=== PATIENT | female | born 1960 | race Caucasian/White ===

== ENCOUNTER 2016-08-19 06:56 | Emergency (ER) | payer OTHER ==
--- NOTE | 2016-08-19 13:00 | ED ORDER SUMMARY ---
..... Patient: KOLE BLACK OrderSheet [facility] VisitID: [id number] [address] [place] [address] 55y, F Registration Date/Time: 08/19/2016 ORDER SHEET Weight: 63.5 kg (stated) Allergies: Penicillins, Sulfa Antibiotics GENERAL ORDERS: - (Crackers with ibuprofen) (09:15 08/19/2016 Leo RUEDA) (9:28 Iza R.N.) Rapid Influenza Screen (Nasal Pharyngeal) (swab) Urgent (09:16 08/19/2016 Leo RUEDA) (Ack 9:19 OHernandez) (9:28 Iza R.N.) MEDICATION ORDERS: Ibuprofen PO 600 mg (NOW) (09:15 08/19/2016 Leo RUEDA) (Ack 9:28 Iza R.N.) (9:49 Iza R.N.) Zofran ODT PO 4 mg (NOW) (09:15 08/19/2016 Leo RUEDA) (Ack 9:28 Iza R.N.) (9:50 Iza R.N.) IV FLUIDS: ORDER SHEET NOTES: [Electronically signed by Avis Jaffe R.N. (19:16 08/19/2016)] [Electronically signed by Tavares Boles MD (12:46 08/21/2016)] [Electronically locked/signed by Avis Jaffe R.N. (19:16 08/19/2016)]
--- NOTE | 2016-08-19 13:00 | ED NURSING NOTES ---
Clinical Report - Nurses [facility] [address] [place] [address] 08/19/2016 6:58 Patient: KOLE BLACK TRIAGE Triage time 07:14. Acuity: LEVEL 4. Chief Complaint: COUGH and VOMITING. Alert. No acute distress. JUANCARLOS COMA SCORE: [place] Coma Scale: 15- eyes open spontaneously (4); best verbal response- oriented x 4 (5); best motor response- obeys commands (6). --07:19 Aysha Buckley R.N. 07:13 08/19/16. BP: 145/74. HR: 19. RR: 18. O2 saturation: 98% on room air. Temp: 98.6 F (oral). Pain level now: 510. --07:19 Aysha Buckley R.N. Weight: 63.5 kg stated. Height/Length: 61 inches Per Patient. BMI: 26.5. --07:16 Aysha Buckley R.N. Medications Acetaminophen Oral, as needed. --07:15 Aysha Buckley R.N. Allergies Penicillins. Sulfa Antibiotics. --07:15 Aysha Buckley R.N. History Arrived by private vehicle. Historian: patient. Accompanied by family. Primary physician (none). Onset. (). She has had a cough. PAST MEDICAL HX: The patient is post-menopausal. SOCIAL HX: Smoker- current status unknown (no). No alcohol use or drug use. FALL RISK ASSESSMENT: Fall risk assessment completed. No fall risk identified. FUNCTIONAL ASSESSMENT: Functional assessment: no impairments noted. LEARNING NEEDS ASSESSMENT: The learning needs assessment revealed no barriers. --07:19 Aysha Buckley R.N. PROBLEMS: no known problems. ADDITIONAL SURGERIES: no known surgeries. Assessment GENERAL / NEURO / PSYCH: Alert. Oriented X 4. Appears in no acute distress. Patient appears calm and cooperative. RESPIRATORY: Respirations not labored. SKIN: Skin is warm and dry. --07:19 Aysha Buckley R.N. Interventions ID band on patient. To treatment room. --07:19 Aysha Buckley R.N. PHYSICAL ASSESSMENT 07:24 08/19/16. Ambulatory to room. GENERAL / NEURO / PSYCH: The patient is awake and alert, is oriented and cooperative and appears uncomfortable. She has good eye contact. RESPIRATORY: Respirations not labored. Cough. SKIN: Skin is warm and dry. --07:24 Aysha Buckley R.N. NURSING PROGRESS NOTES 07:25 08/19/16. Head of bed elevated. Call light placed in reach. Side rails up x 1. Bed placed in lowest position. Brakes of bed on. --07:25 Aysha Buckley R.N. 09:49 08/19/2016 Ibuprofen PO Tablets 600 mg given. Allergies verified and confirmed 5 rights. --09:49 Aysha Buckley R.N. 09:50 08/19/2016 Zofran ODT (Ondansetron) PO Oral Disintegrating Tablets 4 mg given. Allergies verified and confirmed 5 rights. --09:50 Aysha Buckley R.N. 09:50 08/19/16. Patient ID band checked: patient confirmed. Flu swab obtained by RN via nasal pharyngeal swab. Labeled in the presence of the patient and sent to lab. --09:50 Aysha Buckley R.N. DISPOSITION / DISCHARGE Departure time: 13:09 Aug 19 2016. No learning barriers present. Discharge instructions provided and reviewed with the patient and spouse. Reviewed warnings. Reviewed medication(s). Treatments reviewed. Reviewed referrals. Patient verbalized understanding. Written instructions provided in Greenlandic. The patient was discharged home and accompanied by spouse. She left the Emergency Department ambulatory and via private vehicle. Spouse driving. --13:09 Avis Jaffe R.N. 13:08 08/19/16. BP: 118/61. HR: 80. RR: 18. O2 saturation: 96%. Temp: 98.1 F. Pain level now 10. --13:09 Avis Jaffe R.N. Locked/Released at 08/19/2016 19:16 by Avis Jaffe R.N.
--- NOTE | 2016-08-19 13:00 | ED CLINICAL REPORT ---
Clinical Report - Physicians/Mid Levels [facility] [address] [place] [address] 08/19/2016 6:58 Patient: KOLE BLACK Time Seen: 09:08. HISTORY OF PRESENT ILLNESS Chief Complaint: COUGH and FEVER. This started about 7 days ago, fever starting yesterday; Aches and cough with nausea and is still present and worsening. It was gradual in onset. The illness is described as moderate. The patient has had scant amounts of sputum, a cough and nasal congestion. She has had a subjective fever (yesterday). No sore throat or hoarseness. Additional history - The patient has had contact with a sick family member. Similar symptoms previously: None. REVIEW OF SYSTEMS The patient is post-menopausal. She has had nausea. No vomiting, abdominal pain, difficulty with urination or urination or joint pain. No skin rash. Sinus and ear pressure. PAST HISTORY PCP: No Local. Just moved Illness: Ops: None Hosp: Childbirth. SOCIAL HISTORY Never smoker. ADDITIONAL NOTES The nursing notes have been reviewed. PHYSICAL EXAM Vital Signs: 08/19/2016 13:08 BP: 118/61. HR: 80. RR: 18. O2 saturation: 96%. Temp: 98.1 F. 08/19/2016 07:13 BP: 145/74. HR: 19. RR: 18. O2 saturation: 98%. Temp: 98.6 F. Pain level now: 5/10. Appearance: Alert. No acute distress. Eyes: Eyes normal inspection. ENT: Ears normal. Pharynx normal. Uvula midline. No pharyngeal erythema or mouth ulcerations. Neck: Normal inspection. CVS: Normal heart rate and rhythm. Heart sounds normal. Respiratory: No respiratory distress. Breath sounds normal. Abdomen: Soft and nontender. Back: No CVA tenderness. Skin: No rash. Extremities: Extremities exhibit normal ROM. No lower extremity edema. LABS, X-RAYS, AND EKG Laboratory Tests: Rapid Influenza Screen: (SURESH: 08/19/2016 09:45) ( MsgRcvd 08/19/2016 10:03) Final results SPECIMEN DESCRIPTION: SWAB Test Result Flag Units (Reference) RAPID INFLUENZA SCREEN DATE: 08/19/16 INFLUENZA A: NEGATIVE SCREEN FOR INFLUENZA A INFLUENZA B: NEGATIVE SCREEN FOR INFLUENZA B . PROGRESS AND PROCEDURES Course of Care: Feels much better after ibuprofen. Non-influenza vrial syndrome. No bacterial infection. Disposition: Discharged. Condition: stable. CLINICAL IMPRESSION Viral syndrome INSTRUCTIONS (ANOTHER VIRUS NOT INFLUENZA, BUT IT ACTS THE SAME NASAL/SINUS AFRIN, SUDAFED). Prescription Medications: Zofran 4 mg: Take 1 orally every six hours as needed for nausea/vomiting. Dispense ten (10). No refills. Substitution is permissible. Albuterol HFA oral inhaler: inhale 1-2 puffs every 4 hours. Dispense one (1) unit. No refill. Follow-up: Follow up with your doctor in five days. Understanding of the discharge instructions verbalized by patient. (Electronically signed by Tavares Boles MD 08/21/2016 12:46)
--- NOTE | 2016-08-19 13:00 | ED ORDER SUMMARY ---
..... Patient: KOLE BLACK OrderSheet [facility] VisitID: [id number] [address] [place] [address] 55y, F Registration Date/Time: 08/19/2016 ORDER SHEET Weight: 63.5 kg (stated) Allergies: Penicillins, Sulfa Antibiotics GENERAL ORDERS: - (Crackers with ibuprofen) (09:15 08/19/2016 Leo RUEDA) (9:28 Iza R.N.) Rapid Influenza Screen (Nasal Pharyngeal) (swab) Urgent (09:16 08/19/2016 Leo RUEDA) (Ack 9:19 OHernandez) (9:28 Iza R.N.) MEDICATION ORDERS: Ibuprofen PO 600 mg (NOW) (09:15 08/19/2016 Leo RUEDA) (Ack 9:28 Iza R.N.) (9:49 Iza R.N.) Zofran ODT PO 4 mg (NOW) (09:15 08/19/2016 Leo RUEDA) (Ack 9:28 Iza R.N.) (9:50 Iza R.N.) IV FLUIDS: ORDER SHEET NOTES: [Electronically signed by Avis Jaffe R.N. (19:16 08/19/2016)] [Electronically signed by Tavares Boles MD (12:46 08/21/2016)] [Electronically locked/signed by Avis Jaffe R.N. (19:16 08/19/2016)]
--- NOTE | 2016-08-19 13:00 | ED NURSING NOTES ---
Clinical Report - Nurses [facility] [address] [place] [address] 08/19/2016 6:58 Patient: KOLE BLACK TRIAGE Triage time 07:14. Acuity: LEVEL 4. Chief Complaint: COUGH and VOMITING. Alert. No acute distress. JUANCARLOS COMA SCORE: [place] Coma Scale: 15- eyes open spontaneously (4); best verbal response- oriented x 4 (5); best motor response- obeys commands (6). --07:19 Aysha Buckley R.N. 07:13 08/19/16. BP: 145/74. HR: 19. RR: 18. O2 saturation: 98% on room air. Temp: 98.6 F (oral). Pain level now: 510. --07:19 Aysha Buckley R.N. Weight: 63.5 kg stated. Height/Length: 61 inches Per Patient. BMI: 26.5. --07:16 Aysha Buckley R.N. Medications Acetaminophen Oral, as needed. --07:15 Aysha Buckley R.N. Allergies Penicillins. Sulfa Antibiotics. --07:15 Aysha Buckley R.N. History Arrived by private vehicle. Historian: patient. Accompanied by family. Primary physician (none). Onset. (). She has had a cough. PAST MEDICAL HX: The patient is post-menopausal. SOCIAL HX: Smoker- current status unknown (no). No alcohol use or drug use. FALL RISK ASSESSMENT: Fall risk assessment completed. No fall risk identified. FUNCTIONAL ASSESSMENT: Functional assessment: no impairments noted. LEARNING NEEDS ASSESSMENT: The learning needs assessment revealed no barriers. --07:19 Aysha Buckley R.N. PROBLEMS: no known problems. ADDITIONAL SURGERIES: no known surgeries. Assessment GENERAL / NEURO / PSYCH: Alert. Oriented X 4. Appears in no acute distress. Patient appears calm and cooperative. RESPIRATORY: Respirations not labored. SKIN: Skin is warm and dry. --07:19 Aysha Buckley R.N. Interventions ID band on patient. To treatment room. --07:19 Aysha Buckley R.N. PHYSICAL ASSESSMENT 07:24 08/19/16. Ambulatory to room. GENERAL / NEURO / PSYCH: The patient is awake and alert, is oriented and cooperative and appears uncomfortable. She has good eye contact. RESPIRATORY: Respirations not labored. Cough. SKIN: Skin is warm and dry. --07:24 Aysha Buckley R.N. NURSING PROGRESS NOTES 07:25 08/19/16. Head of bed elevated. Call light placed in reach. Side rails up x 1. Bed placed in lowest position. Brakes of bed on. --07:25 Aysha Buckley R.N. 09:49 08/19/2016 Ibuprofen PO Tablets 600 mg given. Allergies verified and confirmed 5 rights. --09:49 Aysha Buckley R.N. 09:50 08/19/2016 Zofran ODT (Ondansetron) PO Oral Disintegrating Tablets 4 mg given. Allergies verified and confirmed 5 rights. --09:50 Aysha Buckley R.N. 09:50 08/19/16. Patient ID band checked: patient confirmed. Flu swab obtained by RN via nasal pharyngeal swab. Labeled in the presence of the patient and sent to lab. --09:50 Aysha Buckley R.N. DISPOSITION / DISCHARGE Departure time: 13:09 Aug 19 2016. No learning barriers present. Discharge instructions provided and reviewed with the patient and spouse. Reviewed warnings. Reviewed medication(s). Treatments reviewed. Reviewed referrals. Patient verbalized understanding. Written instructions provided in [place]ander. The patient was discharged home and accompanied by spouse. She left the Emergency Department ambulatory and via private vehicle. Spouse driving. --13:09 Avis Jaffe R.N. 13:08 08/19/16. BP: 118/61. HR: 80. RR: 18. O2 saturation: 96%. Temp: 98.1 F. Pain level now 10. --13:09 Avis Jaffe R.N. Locked/Released at 08/19/2016 19:16 by Avis Jaffe R.N.
--- NOTE | 2016-08-19 13:00 | ED CLINICAL REPORT ---
Clinical Report - Physicians/Mid Levels [facility] [address] [place] [address] 08/19/2016 6:58 Patient: KOLE BLACK Time Seen: 09:08. HISTORY OF PRESENT ILLNESS Chief Complaint: COUGH and FEVER. This started about 7 days ago, fever starting yesterday; Aches and cough with nausea and is still present and worsening. It was gradual in onset. The illness is described as moderate. The patient has had scant amounts of sputum, a cough and nasal congestion. She has had a subjective fever (yesterday). No sore throat or hoarseness. Additional history - The patient has had contact with a sick family member. Similar symptoms previously: None. REVIEW OF SYSTEMS The patient is post-menopausal. She has had nausea. No vomiting, abdominal pain, difficulty with urination or urination or joint pain. No skin rash. Sinus and ear pressure. PAST HISTORY PCP: No Local. Just moved Illness: Ops: None Hosp: Childbirth. SOCIAL HISTORY Never smoker. ADDITIONAL NOTES The nursing notes have been reviewed. PHYSICAL EXAM Vital Signs: 08/19/2016 13:08 BP: 118/61. HR: 80. RR: 18. O2 saturation: 96%. Temp: 98.1 F. 08/19/2016 07:13 BP: 145/74. HR: 19. RR: 18. O2 saturation: 98%. Temp: 98.6 F. Pain level now: 5/10. Appearance: Alert. No acute distress. Eyes: Eyes normal inspection. ENT: Ears normal. Pharynx normal. Uvula midline. No pharyngeal erythema or mouth ulcerations. Neck: Normal inspection. CVS: Normal heart rate and rhythm. Heart sounds normal. Respiratory: No respiratory distress. Breath sounds normal. Abdomen: Soft and nontender. Back: No CVA tenderness. Skin: No rash. Extremities: Extremities exhibit normal ROM. No lower extremity edema. LABS, X-RAYS, AND EKG Laboratory Tests: Rapid Influenza Screen: (SURESH: 08/19/2016 09:45) ( MsgRcvd 08/19/2016 10:03) Final results SPECIMEN DESCRIPTION: SWAB Test Result Flag Units (Reference) RAPID INFLUENZA SCREEN DATE: 08/19/16 INFLUENZA A: NEGATIVE SCREEN FOR INFLUENZA A INFLUENZA B: NEGATIVE SCREEN FOR INFLUENZA B . PROGRESS AND PROCEDURES Course of Care: Feels much better after ibuprofen. Non-influenza vrial syndrome. No bacterial infection. Disposition: Discharged. Condition: stable. CLINICAL IMPRESSION Viral syndrome INSTRUCTIONS (ANOTHER VIRUS NOT INFLUENZA, BUT IT ACTS THE SAME NASAL/SINUS AFRIN, SUDAFED). Prescription Medications: Zofran 4 mg: Take 1 orally every six hours as needed for nausea/vomiting. Dispense ten (10). No refills. Substitution is permissible. Albuterol HFA oral inhaler: inhale 1-2 puffs every 4 hours. Dispense one (1) unit. No refill. Follow-up: Follow up with your doctor in five days. Understanding of the discharge instructions verbalized by patient. (Electronically signed by Tavares Boles MD 08/21/2016 12:46)
--- NOTE | 2016-08-21 12:47 | ED MAR SUMMARY ---
..... Medication Administration Record [facility] [address] [place] [address] Patient: KOLE BLACK Visit ID: [id number] 55y, F Weight: 63.5 kg Height/Length: 61 in BMI: 26.5 ALLERGIES: Penicillins, Sulfa Antibiotics Given 09:49 08/19/2016 Aysha Buclkey R.N. Medication Administered: IBUPROFEN [PO], Dose: 600 mg Tablets PO. Medication Ordered: Ibuprofen PO 600 mg (NOW). Given 09:50 08/19/2016 Aysha Buckley, RYosefN. Medication Administered: ZOFRAN ODT [PO] (ONDANSETRON), Dose: 4 mg Oral Disintegrating Tablets PO. Medication Ordered: Zofran ODT PO 4 mg (NOW).
--- NOTE | 2016-08-21 12:47 | ED DISCHARGE INSTRUCTIONS ---
Patient: KOLE BLACK General Instructions [facility] VisitID: [id number] [address] [place] [address] 55y, F Registration Date/Time: 08/19/2016 Viral syndrome INSTRUCTIONS (ANOTHER VIRUS NOT INFLUENZA, BUT IT ACTS THE SAME NASAL/SINUS AFRIN, SUDAFED). Prescription Medications: Zofran 4 mg: Take 1 orally every six hours as needed for nausea/vomiting. Dispense ten (10). No refills. Substitution is permissible. Albuterol HFA oral inhaler: inhale 1-2 puffs every 4 hours. Dispense one (1) unit. No refill. Follow-up: Follow up with your doctor in five days. Understanding of the discharge instructions verbalized by patient. ADDITIONAL INFORMATION Viral Syndrome (Adult) A viral illness may cause a number of symptoms. The symptoms depend on the part of the body that the virus affects. If it settles in the nose, throat, and lungs, it may cause cough, sore throat, congestion, and sometimes headache. If it settles in the stomach and intestinal tract, it may cause vomiting and diarrhea. Sometimes it causes vague symptoms like "aching all over," feeling tired, loss of appetite, or fever. A viral illness usually lasts1 to 2 weeks, but sometimes it lasts longer. In some cases, a more serious infection can look like a viral syndrome in the first few days of the illness. You may need anotherexam and additional teststo know the difference.Watch for the warning signs listed below. Home care Follow these guidelines for taking care of yourself at home: If symptoms are severe, rest at home for the first 2 to 3 days. Stay away from cigarette smoke - both your smoke and the smoke from others. You may useacetaminophen or ibuprofen for fever, muscle aching, and headache, unless another medicine was prescribed for this.If you have chronic liver or kidney disease or ever had a stomach ulcer or GI bleeding, talk with your doctor before using these medicinesNo one who is younger than 18 and ill with a fever should take aspirin. It may cause severe liver damage. Your appetite may be poor, so a light diet is fine. Avoid dehydration by drinking 8 to 12 8-ounce glasses of fluids each day. This may include water; orange juice; lemonade; apple, grape, and cranberry juice; clear fruit drinks; electrolyte replacement and sports drinks; and decaffeinated teas and coffee. If you have been diagnosed with a kidney disease, ask your doctor how much and what types of fluids you should drink to prevent dehydration. If you have kidney disease, drinking too much fluid can cause it build up in the your body and be dangerous to your health. Xbtk-ava-toeceja remedies won't shorten the length of the illness but may be helpful forcough, sore throat; and nasal and sinus congestion. Don't use decongestants if you have high blood pressure. Follow-up care Follow up with your health care provider if you do not improve over the next week. When to seek medical care Get prompt medical attention if any of these occur: Cough with lots of colored sputum (mucus) or blood in your sputum Chest pain, shortness of breath, wheezing, or difficulty breathing Severe headache; face, neck, or ear pain Severe, constant pain in the lower right side of your belly (abdominal) Continued vomiting (cant keep liquids down) Frequent diarrhea (more than 5 times a day); blood (red or black color) or mucus in diarrhea Feeling weak, dizzy, or like you are going to faint Extreme thirst Fever of 100.4 F (38 C) oral or higher, not better with fever medication Convulsion Albuterol Sulfate Pressurized inhalation, suspension What is this medicine? ALBUTEROL (al BYOO ter ole) is a bronchodilator. It helps open up the airways in your lungs to make it easier to breathe. This medicine is used to treat and to prevent bronchospasm. How should I use this medicine? This medicine is for inhalation through the mouth. Follow the directions on your prescription label. Take your medicine at regular intervals. Do not use more often than directed. Make sure that you are using your inhaler correctly. Ask you doctor or health care provider if you have any questions. Talk to your project management analyst regarding the use of this medicine in children. Special care may be needed. What side effects may I notice from receiving this medicine? Side effects that you should report to your doctor or health patient care representative as soon as possible: allergic reactions like skin rash, itching or hives, swelling of the face, lips, or tongue breathing problems chest pain feeling faint or lightheaded, falls high blood pressure irregular heartbeat fever muscle cramps or weakness pain, tingling, numbness in the hands or feet vomiting Side effects that usually do not require medical attention (report to your doctor or health patient care representative if they continue or are bothersome): cough difficulty sleeping headache nervousness or trembling stomach upset stuffy or runny nose throat irritation unusual taste What may interact with this medicine? anti-infectives like chloroquine and pentamidine caffeine cisapride diuretics medicines for colds medicines for depression or for emotional or psychotic conditions medicines for weight loss including some herbal products methadone some antibiotics like clarithromycin, erythromycin, levofloxacin, and linezolid some heart medicines steroid hormones like dexamethasone, cortisone, hydrocortisone theophylline thyroid hormones What if I miss a dose? If you miss a dose, use it as soon as you can. If it is almost time for your next dose, use only that dose. Do not use double or extra doses. Where should I keep my medicine? Keep out of the reach of children. Store at room temperature between 15 and 30 degrees C (59 and 86 degrees F). The contents are under pressure and may burst when exposed to heat or flame. Do not freeze. This medicine does not work as well if it is too cold. Throw away any unused medicine after the expiration date. Inhalers need to be thrown away after the labeled number of puffs have been used or by the expiration date; whichever comes first. Ventolin HFA should be thrown away 12 months after removing from foil pouch. Check the instructions that come with your medicine. What should I tell my health care provider before I take this medicine? They need to know if you have any of the following conditions: diabetes heart disease or irregular heartbeat high blood pressure pheochromocytoma seizures thyroid disease an unusual or allergic reaction to albuterol, levalbuterol, sulfites, other medicines, foods, dyes, or preservatives or trying to get breast-feeding What should I watch for while using this medicine? Tell your doctor or health patient care representative if your symptoms do not improve. Do not use extra albuterol. If your asthma or bronchitis gets worse while you are using this medicine, call your doctor right away. If your mouth gets dry try chewing sugarless gum or sucking hard candy. Drink water as directed. You have been given the following additional information: Viral Syndrome (Adult) Albuterol Sulfate Pressurized inhalation, suspension (Electronically signed by Tavares Boles MD 08/21/2016 12:46)
--- NOTE | 2016-08-21 12:47 | ED MED RECONCILIATION SUMMARY ---
Patient: KOLE BLACK Medication Reconciliation Report [facility] VisitID: [id number] [address] [place] [address] 55y, F Registration Date/Time: 08/19/2016 Weight: 63.5 kg Height/Length: 61 in. BMI: 26.5 ALLERGIES: Penicillins, Sulfa Antibiotics The patient's Home Medications are listed below: THE FOLLOWING MEDICATIONS NEED TO BE RECONCILED: Acetaminophen Oral The source(s) of the original Home Medication information: Not obtained. The following Medications were given to the patient in the Emergency Department: Ibuprofen [PO] PO 600 mg, administered: 08/19/2016 9:49:00 AM Zofran ODT [PO] PO 4 mg, administered: 08/19/2016 9:50:00 AM The following Medications were prescribed to the patient: Zofran 4 mg: Take 1 orally every six hours as needed for nausea/vomiting. Dispense ten (10). No refills. Substitution is permissible. -- Tavares Boles MD Albuterol HFA oral inhaler: inhale 1-2 puffs every 4 hours. Dispense one (1) unit. No refill. -- Tavares Boles MD
--- NOTE | 2016-08-21 12:47 | ED MAR SUMMARY ---
..... Medication Administration Record [facility] [address] [place] [address] Patient: KOLE BLACK Visit ID: [id number] 55y, F Weight: 63.5 kg Height/Length: 61 in BMI: 26.5 ALLERGIES: Penicillins, Sulfa Antibiotics Given 09:49 08/19/2016 Aysha Buckley R.N. Medication Administered: IBUPROFEN [PO], Dose: 600 mg Tablets PO. Medication Ordered: Ibuprofen PO 600 mg (NOW). Given 09:50 08/19/2016 Aysha Buckley, RYosefN. Medication Administered: ZOFRAN ODT [PO] (ONDANSETRON), Dose: 4 mg Oral Disintegrating Tablets PO. Medication Ordered: Zofran ODT PO 4 mg (NOW).
--- NOTE | 2016-08-21 12:47 | ED MED RECONCILIATION SUMMARY ---
Patient: KOLE BLACK Medication Reconciliation Report [facility] VisitID: [id number] [address] [place] [address] 55y, F Registration Date/Time: 08/19/2016 Weight: 63.5 kg Height/Length: 61 in. BMI: 26.5 ALLERGIES: Penicillins, Sulfa Antibiotics The patient's Home Medications are listed below: THE FOLLOWING MEDICATIONS NEED TO BE RECONCILED: Acetaminophen Oral The source(s) of the original Home Medication information: Not obtained. The following Medications were given to the patient in the Emergency Department: Ibuprofen [PO] PO 600 mg, administered: 08/19/2016 9:49:00 AM Zofran ODT [PO] PO 4 mg, administered: 08/19/2016 9:50:00 AM The following Medications were prescribed to the patient: Zofran 4 mg: Take 1 orally every six hours as needed for nausea/vomiting. Dispense ten (10). No refills. Substitution is permissible. -- Tavares Boles MD Albuterol HFA oral inhaler: inhale 1-2 puffs every 4 hours. Dispense one (1) unit. No refill. -- Tavares Boles MD
== END 2016-08-19 13:05 | disposition home or self-care (01) ==
LOC: ED SRH 06:56
DX: B34.9 Viral infection, unspecified (principal); Z88.0 Allergy status to penicillin; Z88.2 Allergy status to sulfonamides
CPT/HCPCS: 91400

== ENCOUNTER 2016-08-21 20:21 | Inpatient (IN) | payer OTHER ==
[~2016-08-21] VITALS: Ht 154.9 cm; Wt 67.4 kg
--- NOTE | 2016-08-21 22:01 | DIAGNOSTIC IMAGING REPORT ---
PROCEDURE: XR CHEST 1 VIEW INDICATION: CHEST PAIN TECHNIQUE: Portable AP view (2054). COMPARISON: None. FINDINGS: Allowing for suboptimal inspiration, lungs are clear. Heart and mediastinum are normal. Thorax is normal. IMPRESSION: 1. Negative chest.
--- NOTE | 2016-08-22 01:45 | ED CLINICAL REPORT ---
Clinical Report - Physicians/Mid Levels [facility] [address] [place] [address] 08/21/2016 20:21 [id number] Time Seen: 20:36 Aug 21 2016. Arrived- By private vehicle. Historian- patient. HISTORY OF PRESENT ILLNESS Chief Complaint: CHEST PAIN. It is described as pressure and it is described as located in the left chest area and radiating (middle back). This started several hours ago and is still present. It was abrupt in onset and has been constant. Onset during light activity. The patient has had mild difficulty breathing (for several weeks). Recent medical care: The patient was seen recently at this facility. Seen for other problems. Diagnosis: (viral bronchitis). REVIEW OF SYSTEMS The patient has had nasal congestion, a runny nose and chills and experienced sweats. No calf pain, pedal edema, palpitations, abdominal pain or constipation. No diarrhea, nausea, vomiting or urinary problems. The patient has had a cough productive of yellow, green, brown sputum. All systems otherwise negative, except as recorded above. PAST HISTORY Medications: Acetaminophen Oral, as needed. Allergies: Penicillins. Sulfa Antibiotics. SOCIAL HISTORY Never smoker. FAMILY HISTORY Heart disease in first-degree relative (father). mother with renal failure. ADDITIONAL NOTES The nursing notes have been reviewed. PHYSICAL EXAM Vital Signs: 08/21/2016 20:25 BP: 178/91. HR: 107. RR: 24. O2 saturation: 100%. Have been reviewed. Appearance: Alert. Appears to be in pain. Eyes: Pupils equal, round and reactive to light. ENT: Pharynx normal. Neck: Normal inspection. Neck supple. CVS: Normal heart rate and rhythm. Heart sounds normal. Respiratory: No respiratory distress. Mild bilateral rhonchi present posteriorly and in the bases; rhonchi present in the right lung base posteriorly. Abdomen: Soft and nontender. Bowel sounds normal. No organomegaly. No mass. Back: Normal external inspection. Skin: Skin warm and dry. Normal skin color. Normal skin turgor. Extremities: Extremities exhibit normal ROM. No calf tenderness. No lower extremity edema. LABS, X-RAYS, AND EKG Chest X-ray: No acute disease. The X-rays were interpreted by the radiologist and contemporaneously by me. Chest CT: No pulmonary embolism. (L base consolidation). The study was interpreted by the radiologist and contemporaneously by me. Abdominal Sonogram: No acute disease. Laboratory Tests: CBC w Diff: (SURESH: 08/21/2016 20:33) ( MsgRcvd 08/21/2016 21:01) Final results Test Result Flag Units (Reference) WHITE BLOOD COUNT 14.3 H K/uL (4.5-11.5) RED BLOOD COUNT 5.05 M/uL (4.00-5.20) HEMOGLOBIN 13.5 gm/dL (12.0-16.0) HEMATOCRIT 42.5 % (36.0-46.0) MEAN CELL VOLUME 84 fL (80-100) MEAN CORPUSCULAR HGB 27 pg (26-34) MEAN CORPUSCULAR HGB CONC 32 g/dL (31-37) RED CELL DISTRIBUTION WIDTH 13.6 % (11.6-14.8) PLATELET COUNT 321 K/uL (150-400) NEUTROPHIL % 82.5 H % (50-75) LYMPH % 10.6 L % (25-40) MONO % 5.6 % (3-14) EOSINOPHIL % 0.9 % (0-4) BASOPHIL % 0.4 % (0-2) [id number]: (SURESH: 08/21/2016 20:33) ( [facility] [place]/21/[place] 21:29) Final results Test Result Flag Units (Reference) D-DIMER QUANTITATIVE 0.68 H ug/mLFEU (0.27-0.52) The primary value of this quantitative assay relates toits negative predictive value (i.e. exclusion) of pulmonaryembolism/deep vein thrombosis/DIC.Elevated levels of d-dimer may also occur with:, age, cancer, inflammation, liver disease,post-op, infection, hematoma, coronary disease, peripheralarteriopathy, bleeding disorders and thrombolytic treatment.Results should be correlated with other clinical andradiological data.Testing Methodology: Latex Immunoassay CHEM 13 PANEL: (SURESH: 08/21/2016 20:33) ( MsgRcvd 08/21/2016 21:23) Final results Test Result Flag Units (Reference) GLUCOSE 142 H mg/dL (70-110) BUN 12 mg/dL (7-18) CREATININE 0.8 mg/dL (0.6-1.3) Estimated GFR >60 mL/min Estimated GFR- >60 mL/min Note: Persistent reduction over 3 months in eGFR<60 mL/min/1.73 m2 defines CKD. Patients with eGFR values>=60 mL/min/1.73 m2 may also have CKD if evidence ofpersistent proteinuria. Additional information may be foundat [email or web address].org. SODIUM 138 mmol/L (136-145) POTASSIUM 3.6 mmol/L (3.5-5.1) CHLORIDE 99 mmol/L (98-107) CARBON DIOXIDE 32 mmol/L (21-32) CALCIUM 9.2 mg/dL (8.5-10.1) TOTAL PROTEIN 8.1 g/dL (6.4-8.2) ALBUMIN 3.4 g/dL (3.3-5.0) BILIRUBIN, TOTAL 0.3 mg/dL (0.0-1.0) ALKALINE PHOSPHATASE 128 H U/L (46-116) AST (SGOT) 59 H U/L (15-37) ALT (SGPT) 99 H U/L (12-78) CPK 38 U/L (24-260) MAGNESIUM 2.2 mg/dL (1.8-2.4) TROPONIN I <0.05 L ng/mL (0.00-1.5) TROPONIN REFERENCE RANGE:<0.1 NEGATIVE0.1-1.5 INDETERMINANT>1.5 POSITIVE . PROGRESS AND PROCEDURES Course of Care: Patient is stable. Discussed case with on-call health care provider, (Vance). Reviewed test results and need for additional work-up. Agreed upon treatment plan, need for patient follow-up and decision to place in observation. Health care provider will see patient in ED. Patient/family counseled. Old medical records reviewed. Disposition: Admitted. Observation. CLINICAL IMPRESSION Pneumonia. (Electronically signed by Chun Quintanilla MD 08/22/2016 3:49)
--- NOTE | 2016-08-22 01:45 | ED CLINICAL REPORT ---
Clinical Report - Physicians/Mid Levels [facility] [address] [place] [address] 08/21/2016 20:21 [id number] Time Seen: 20:36 Aug 21 2016. Arrived- By private vehicle. Historian- patient. HISTORY OF PRESENT ILLNESS Chief Complaint: CHEST PAIN. It is described as pressure and it is described as located in the left chest area and radiating (middle back). This started several hours ago and is still present. It was abrupt in onset and has been constant. Onset during light activity. The patient has had mild difficulty breathing (for several weeks). Recent medical care: The patient was seen recently at this facility. Seen for other problems. Diagnosis: (viral bronchitis). REVIEW OF SYSTEMS The patient has had nasal congestion, a runny nose and chills and experienced sweats. No calf pain, pedal edema, palpitations, abdominal pain or constipation. No diarrhea, nausea, vomiting or urinary problems. The patient has had a cough productive of yellow, green, brown sputum. All systems otherwise negative, except as recorded above. PAST HISTORY Medications: Acetaminophen Oral, as needed. Allergies: Penicillins. Sulfa Antibiotics. SOCIAL HISTORY Never smoker. FAMILY HISTORY Heart disease in first-degree relative (father). mother with renal failure. ADDITIONAL NOTES The nursing notes have been reviewed. PHYSICAL EXAM Vital Signs: 08/21/2016 20:25 BP: 178/91. HR: 107. RR: 24. O2 saturation: 100%. Have been reviewed. Appearance: Alert. Appears to be in pain. Eyes: Pupils equal, round and reactive to light. ENT: Pharynx normal. Neck: Normal inspection. Neck supple. CVS: Normal heart rate and rhythm. Heart sounds normal. Respiratory: No respiratory distress. Mild bilateral rhonchi present posteriorly and in the bases; rhonchi present in the right lung base posteriorly. Abdomen: Soft and nontender. Bowel sounds normal. No organomegaly. No mass. Back: Normal external inspection. Skin: Skin warm and dry. Normal skin color. Normal skin turgor. Extremities: Extremities exhibit normal ROM. No calf tenderness. No lower extremity edema. LABS, X-RAYS, AND EKG Chest X-ray: No acute disease. The X-rays were interpreted by the radiologist and contemporaneously by me. Chest CT: No pulmonary embolism. (L base consolidation). The study was interpreted by the radiologist and contemporaneously by me. Abdominal Sonogram: No acute disease. Laboratory Tests: CBC w Diff: (SURESH: 08/21/2016 20:33) ( MsgRcvd 08/21/2016 21:01) Final results Test Result Flag Units (Reference) WHITE BLOOD COUNT 14.3 H K/uL (4.5-11.5) RED BLOOD COUNT 5.05 M/uL (4.00-5.20) HEMOGLOBIN 13.5 gm/dL (12.0-16.0) HEMATOCRIT 42.5 % (36.0-46.0) MEAN CELL VOLUME 84 fL (80-100) MEAN CORPUSCULAR HGB 27 pg (26-34) MEAN CORPUSCULAR HGB CONC 32 g/dL (31-37) RED CELL DISTRIBUTION WIDTH 13.6 % (11.6-14.8) PLATELET COUNT 321 K/uL (150-400) NEUTROPHIL % 82.5 H % (50-75) LYMPH % 10.6 L % (25-40) MONO % 5.6 % (3-14) EOSINOPHIL % 0.9 % (0-4) BASOPHIL % 0.4 % (0-2) [id number]: (SURESH: 08/21/2016 20:33) ( [facility] [place] Final results Test Result Flag Units (Reference) D-DIMER QUANTITATIVE 0.68 H ug/mLFEU (0.27-0.52) The primary value of this quantitative assay relates toits negative predictive value (i.e. exclusion) of pulmonaryembolism/deep vein thrombosis/DIC.Elevated levels of d-dimer may also occur with:, age, cancer, inflammation, liver disease,post-op, infection, hematoma, coronary disease, peripheralarteriopathy, bleeding disorders and thrombolytic treatment.Results should be correlated with other clinical andradiological data.Testing Methodology: Latex Immunoassay CHEM 13 PANEL: (SURESH: 08/21/2016 20:33) ( MsgRcvd 08/21/2016 21:23) Final results Test Result Flag Units (Reference) GLUCOSE 142 H mg/dL (70-110) BUN 12 mg/dL (7-18) CREATININE 0.8 mg/dL (0.6-1.3) Estimated GFR >60 mL/min Estimated GFR- >60 mL/min Note: Persistent reduction over 3 months in eGFR<60 mL/min/1.73 m2 defines CKD. Patients with eGFR values>=60 mL/min/1.73 m2 may also have CKD if evidence ofpersistent proteinuria. Additional information may be foundat [email or web address]. SODIUM 138 mmol/L (136-145) POTASSIUM 3.6 mmol/L (3.5-5.1) CHLORIDE 99 mmol/L (98-107) CARBON DIOXIDE 32 mmol/L (21-32) CALCIUM 9.2 mg/dL (8.5-10.1) TOTAL PROTEIN 8.1 g/dL (6.4-8.2) ALBUMIN 3.4 g/dL (3.3-5.0) BILIRUBIN, TOTAL 0.3 mg/dL (0.0-1.0) ALKALINE PHOSPHATASE 128 H U/L (46-116) AST (SGOT) 59 H U/L (15-37) ALT (SGPT) 99 H U/L (12-78) CPK 38 U/L (24-260) MAGNESIUM 2.2 mg/dL (1.8-2.4) TROPONIN I <0.05 L ng/mL (0.00-1.5) TROPONIN REFERENCE RANGE:<0.1 NEGATIVE0.1-1.5 INDETERMINANT>1.5 POSITIVE . PROGRESS AND PROCEDURES Course of Care: Patient is stable. Discussed case with on-call health care provider, (Vance). Reviewed test results and need for additional work-up. Agreed upon treatment plan, need for patient follow-up and decision to place in observation. Health care provider will see patient in ED. Patient/family counseled. Old medical records reviewed. Disposition: Admitted. Observation. CLINICAL IMPRESSION Pneumonia. (Electronically signed by Chun Quintanilla MD 08/22/2016 3:49)
--- NOTE | 2016-08-22 01:45 | ED ORDER SUMMARY ---
..... Patient: KOLE BLACK OrderSheet [facility] VisitID: [id number] [place] [address] 55y, F Registration Date/Time: 08/21/2016 ORDER SHEET Weight: 63.5 kg (stated) Allergies: Penicillins, Sulfa Antibiotics GENERAL ORDERS: Cable Ferry Operator (Continuous) (CP) (20:39 08/21/2016 JQuivey R.N. per protocol) (20:41 JQuivey R.N.) Chest 1V Urgent (20:39 08/21/2016 JQuivey R.N. per protocol) (Ack 20:49 NHouse ER Tech1) (20:57 MCampbell) Cardiac Panel Stat (20:40 08/21/2016 JQuivey R.N. per protocol) (Ack 20:49 NHouse ER Tech1) (21:10 JQuivey R.N.) Oxygen (2 L/min) (NC) (20:40 08/21/2016 JQuivey R.N. per protocol) (20:41 JQuivey R.N.) EKG - ER Stat (20:40 08/21/2016 JQuivey R.N. per protocol) (20:41 JQuivey R.N.) D-Dimer Urgent (21:14 08/21/2016 Toro RUEDA) (21:28 NHouse ER Tech1) US Abdomen Limited (No) Urgent (23:47 08/21/2016 Kevin RUEDA) (Ack 23:52 LMuller) (1:15 JQuivey R.N.) CTA Thorax w Cont (No) (See report) Urgent (23:48 08/21/2016 Kevin RUEDA) (Ack 23:52 LMuller) (1:15 JQuivey R.N.) Blood Culture (No) (N/A) Urgent (01:24 08/22/2016 Kevin RUEDA) (Ack 1:31 LMuller) (1:52 JQuivey R.N.) PCT (Procalcitonin) Urgent (01:25 08/22/2016 Kevin RUEDA) (Ack 1:31 LMuller) (1:52 JQuivey R.N.) MEDICATION ORDERS: Aspirin PO 325 mg (NOW) (20:38 08/21/2016 JQuivey R.N. per protocol) (20:41 JQuivey R.N.) Phenergan IV 12.5 mg (NOW) (03:18 08/22/2016 JQuivey R.N. verbal order read back to Kevin RUEDA) (3:19 JQuivey R.N.) IV FLUIDS: IV Saline Lock (20:40 08/21/2016 JQuivey R.N. per protocol) (20:40 JQuivey R.N.) IV NS : initial bolus 500 mL (1000 mL/hr), then 125 mL/hr for 4h (NOW); Urgent (23:46 08/21/2016 Kevin RUEDA) (Ack 23:54 JQuivey R.N.) (0:11 JQuivey R.N.) Dilaudid IV 0.5 mg (HIGH ALERT MEDICATION, NOW) (23:47 08/21/2016 Kevin RUEDA) (Ack 23:54 JQuivey R.N.) (0:12 JQuivey R.N.) Zofran IV 4 mg (NOW) (23:47 08/21/2016 Kevin RUEDA) (Ack 23:54 JQuivey R.N.) (0:12 JQuivey R.N.) Dilaudid IV 0.5 mg (HIGH ALERT MEDICATION, NOW) (00:42 08/22/2016 Kevin RUEDA) (Ack 1:02 JQuivey R.N.) Levaquin IV 750 mg/150 mL (NOW) (01:47 08/22/2016 Kevin RUEDA) (Ack 1:52 JQuivey R.N.) (2:13 JQuivey R.N.) Dilaudid IV 0.5 mg (HIGH ALERT MEDICATION, NOW) (02:45 08/22/2016 Kevin RUEDA) (2:47 JQuivey R.N.) Zofran IV 4 mg (NOW) (02:50 08/22/2016 RastaQuivey R.N. verbal order read back to Kevin RUEDA) (2:50 Keyshawn Miguel) ORDER SHEET NOTES: [Electronically signed by Chun Quintanilla MD (03:49 08/22/2016)] [Electronically signed by Kenton Guadarrama R.N. (04:41 08/22/2016)] [Electronically locked/signed by Kenton Guadarrama R.N. (04:41 08/22/2016)]
--- NOTE | 2016-08-22 01:45 | ED ORDER SUMMARY ---
..... Patient: KOLE BLACK OrderSheet [facility] VisitID: [id number] [place] [address] 55y, F Registration Date/Time: 08/21/2016 ORDER SHEET Weight: 63.5 kg (stated) Allergies: Penicillins, Sulfa Antibiotics GENERAL ORDERS: Mold Stamper And Repairer (Continuous) (CP) (20:39 08/21/2016 JQuivey R.N. per protocol) (20:41 JQuivey R.N.) Chest 1V Urgent (20:39 08/21/2016 JQuivey R.N. per protocol) (Ack 20:49 NHouse ER Tech1) (20:57 MCampbell) Cardiac Panel Stat (20:40 08/21/2016 JQuivey R.N. per protocol) (Ack 20:49 NHouse ER Tech1) (21:10 JQuivey R.N.) Oxygen (2 L/min) (NC) (20:40 08/21/2016 JQuivey R.N. per protocol) (20:41 JQuivey R.N.) EKG - ER Stat (20:40 08/21/2016 JQuivey R.N. per protocol) (20:41 JQuivey R.N.) D-Dimer Urgent (21:14 08/21/2016 Toro RUEDA) (21:28 NHouse ER Tech1) US Abdomen Limited (No) Urgent (23:47 08/21/2016 Kevin RUEDA) (Ack 23:52 LMuller) (1:15 JQuivey R.N.) CTA Thorax w Cont (No) (See report) Urgent (23:48 08/21/2016 Kevin RUEDA) (Ack 23:52 LMuller) (1:15 JQuivey R.N.) Blood Culture (No) (N/A) Urgent (01:24 08/22/2016 Kevin RUEDA) (Ack 1:31 LMuller) (1:52 JQuivey R.N.) PCT (Procalcitonin) Urgent (01:25 08/22/2016 Kevin RUEDA) (Ack 1:31 LMuller) (1:52 JQuivey R.N.) MEDICATION ORDERS: Aspirin PO 325 mg (NOW) (20:38 08/21/2016 JQuivey R.N. per protocol) (20:41 JQuivey R.N.) Phenergan IV 12.5 mg (NOW) (03:18 08/22/2016 JQuivey R.N. verbal order read back to Kevin RUEDA) (3:19 JQuivey R.N.) IV FLUIDS: IV Saline Lock (20:40 08/21/2016 JQuivey R.N. per protocol) (20:40 JQuivey R.N.) IV NS : initial bolus 500 mL (1000 mL/hr), then 125 mL/hr for 4h (NOW); Urgent (23:46 08/21/2016 Kevin RUEDA) (Ack 23:54 JQuivey R.N.) (0:11 JQuivey R.N.) Dilaudid IV 0.5 mg (HIGH ALERT MEDICATION, NOW) (23:47 08/21/2016 Kevin RUEDA) (Ack 23:54 JQuivey R.N.) (0:12 JQuivey R.N.) Zofran IV 4 mg (NOW) (23:47 08/21/2016 Kevin RUEDA) (Ack 23:54 JQuivey R.N.) (0:12 JQuivey R.N.) Dilaudid IV 0.5 mg (HIGH ALERT MEDICATION, NOW) (00:42 08/22/2016 Kevin RUEDA) (Ack 1:02 JQuivey R.N.) Levaquin IV 750 mg/150 mL (NOW) (01:47 08/22/2016 Kevin RUEDA) (Ack 1:52 JQuivey R.N.) (2:13 JQuivey R.N.) Dilaudid IV 0.5 mg (HIGH ALERT MEDICATION, NOW) (02:45 08/22/2016 Kevin RUEDA) (2:47 JQuivey R.N.) Zofran IV 4 mg (NOW) (02:50 08/22/2016 RastaQuivey R.N. verbal order read back to Kevin RUEDA) (2:50 Keyshawn Miguel) ORDER SHEET NOTES: [Electronically signed by Chun Quintanilla MD (03:49 08/22/2016)] [Electronically signed by Kenton Guadarrama R.N. (04:41 08/22/2016)] [Electronically locked/signed by Kenton Guadarrama R.N. (04:41 08/22/2016)]
--- NOTE | 2016-08-22 01:45 | ED NURSING NOTES ---
Clinical Report - Nurses [facility] [place] [address] 08/21/2016 20:21 Patient: KOLE BLACK TRIAGE Triage time 20:25. Acuity: LEVEL 3. Chief Complaint: CHEST PAIN. --20:31 Emile Jamil R.N. 20:25 08/21/16. BP: 178/91. HR: 107. RR: 24. O2 saturation: 100%. Pain level now 7/10. --20:31 Emile Jamil R.N. Weight: 63.5 kg stated. Height/Length: 61 inches Per Patient. BMI: 26.5. --20:30 Emile Jamil R.N. Medications Acetaminophen Oral, as needed. --20:29 Emile Jamil R.N. Medication/allergy information source: the patient. --20:31 Emile Jamil R.N. Allergies Penicillins. Sulfa Antibiotics. --20:29 Emile Jamil R.N. History Arrived by private vehicle. Historian: patient. Accompanied by family. This started just prior to arrival. ( Pt is having cp that just started. Left sided chest pain. Pt denies any n/v. Pt does have a cough with sinus infection. 7/10 that is aching to sharp and worse on deep breathing.). Treatment BUSINESS SOLUTIONS CONSULTANT: None. PAST MEDICAL HX: No history of diabetes mellitus, hypertension, heart disease or lung disease. Immunizations: (none). SOCIAL HX: Never smoker. No alcohol use or drug use. --20:31 Emile Jamil R.N. PROBLEMS: Viral Disease. --20:29 Emile Jamil R.N. Interventions ID band on patient. To treatment room. --20:31 Emile Jamil R.N. NURSING PROGRESS NOTES 20:31 08/21/2016 Site #1 started via IV in the left antecubital space with an 20g angiocath, with aseptic technique and good blood return; one attempt. Blood drawn: rainbow set. Labeled in the presence of the patient and sent to the lab. Saline lock flushed with 10 mL saline. --20:31 Emile Jamil R.N. The plan of care for this patient has been created. ekg monitor tech, pulse oximeter and NIBP monitor placed on patient; playground monitor- Lead II. EKG time: (2033). EKG was performed by a tech and shown to the ED physician. Patient gowned. Head of bed elevated. Reassurance given. Two patient identifiers checked. Call light placed in reach. Side rails up x 1. Bed placed in lowest position. --20:32 Emile Jamil R.N. 20:38 08/21/2016 Aspirin PO 325 mg given. Allergies verified and confirmed 5 rights. --20:41 Kenton Guadarrama R.N. 22:11 08/21/16. BP: 151/78. HR: 104. RR: 17. O2 saturation: 99% on nasal cannula at 2 liters/minute. Pain level now: 01/20. --22:12 Kenton Guadarrama R.N. 22:11. Cardiac rhythm: sinus tachycardia. The patient is calm and resting quietly. --22:12 Kenton Guadarrama R.N. 22:14 Patient assisted to restroom to collect urine sample. --22:15 Kenton Guadarrama R.N. 00:04 08/22/2016 Started bag #1 1000 mL IV Fluids IV NS (Saline); at 1000 mL/hr over 30 minute(s) via site #1 via IV pump. IV patency established. IV site checked: no pain, redness, or swelling. IV flushed thoroughly pre- and post-medication administration. --00:11 Kenton Guadarrama R.N. 00:06 08/22/2016 Zofran (Ondansetron HCl) IVP 4 mg given over 2 minute(s) via site #1. Allergies verified and confirmed 5 rights. IV patency established. IV site checked: no pain, redness, or swelling. IV flushed thoroughly pre- and post-medication administration. --00:12 Kenton Guadarrama R.N. 00:08 08/22/2016 Dilaudid (HYDROmorphone HCl PF) IVP 0.5 mg given over 2 minute(s) via site #1. Allergies verified, confirmed 5 rights and sedative warning given to the patient and patient's family. IV patency established. IV site checked: no pain, redness, or swelling. IV flushed thoroughly pre- and post-medication administration. --00:12 Kenton Guadarrama R.N. Patient ID band checked for patient name and birthdate: patient confirmed. Clean catch urine collected with return of yellow-colored clear urine. Specimen labeled in the presence of the patient. --00:13 Kenton Guadarrama R.N. Cardiac rhythm: sinus tachycardia. The patient is calm and resting quietly. RESPIRATORY: No respiratory distress. SKIN: Skin is warm and dry. Skin color within normal limits. --00:13 Kenton Guadarrama R.N. 00:13 08/22/16. BP: 166/85. HR: 114. RR: 19. O2 saturation: 97% on nasal cannula at 2 liters/minute. --00:13 Kenton Guadarrama R.N. 00:45 08/22/2016 Dilaudid (HYDROmorphone HCl PF) IVP 0.5 mg given over 30 second(s) via site #1. Allergies verified, confirmed 5 rights and sedative warning given to the patient. IV patency established. IV site checked: no pain, redness, or swelling. IV flushed thoroughly pre- and post-medication administration. IVP given by RN (given per verbal order from EDMD). --00:45 Amelia Diaz R.N. 00:35 composite technician with pt for exam. --01:04 Kenton Guadarrama R.N. 01:02. Patient transported to [place] by stretcher with tech. --01:14 Kenton Guadarrama R.N. 01:13. Patient returned from CT by stretcher with tech. --01:15 Kenton Guadarrama R.N. 01:42 signal maintenance technician with pt for blood draw. --01:53 Kenton Guadarrama R.N. 02:13 08/22/2016 Started 750 mg of Levaquin (Levofloxacin) IVPB in bag #1 150 mL; at 100 mL/hr over 1.5 hour(s) via site #1 via IV pump. Allergies verified and confirmed 5 rights. IV patency established. IV site checked: no pain, redness, or swelling. IV flushed thoroughly pre- and post-medication administration. --02:13 Kenton Guadarrama R.N. 02:47 08/22/2016 Dilaudid (HYDROmorphone HCl PF) IVP 0.5 mg given over 2 minute(s) via site #1. Allergies verified, confirmed 5 rights and sedative warning given to the patient. IV patency established. IV site checked: no pain, redness, or swelling. IV flushed thoroughly pre- and post-medication administration. --02:47 Kenton Guadarrama R.N. 02:50 08/22/2016 Zofran (Ondansetron HCl) IVP 4 mg given over 2 minute(s) via site #1. Allergies verified and confirmed 5 rights. IV patency established. IV site checked: no pain, redness, or swelling. IV flushed thoroughly pre- and post-medication administration. --02:50 Kenton Guadarrama R.N. 03:19 08/22/2016 PHENERGAN (Promethazine HCl) IVP 12.5 mg given over 2 minute(s) via site #1. Allergies verified and confirmed 5 rights. IV patency established. IV site checked: no pain, redness, or swelling. IV flushed thoroughly pre- and post-medication administration. --03:19 Kenton Guadarrama R.N. DISPOSITION / DISCHARGE Condition at departure: stable. No learning barriers present. Admitted to Acute Care. Patient's personal items include: glasses, Other belongings; items were placed in belongings bag and transported with the patient. She did not have contacts, dentures or a hearing aid. FALL RISK ASSESSMENT: Fall risk assessment completed. No fall risk identified. --02:56 Kenton Guadarrama R.N. 02:51 08/22/16. BP: 140/86. HR: 95. RR: 25. O2 saturation: 98% on nasal cannula at 2 liters/minute. Pain level now: 11/20. --02:56 Kenton Guadarrama R.N. 03:13. Report was given via a phone call. Report included patient's care, treatment, medications, reviewed medication reconcilliation, and condition (including any recent changes or anticipated changes). All questions were answered. Report was acknowledged. (Silvia ALVARENGAhealthcare economics consultant). --03:13 Kenton Guadarrama R.N. 03:15 08/22/2016 IV Fluids IV NS Continued: upon admission at the rate of 125 mL/hr. 225 mL remaining bag #1. IV patency established. IV site checked: no pain, redness, or swelling. IV flushed thoroughly. --03:15 Kenton Guadarrama R.N. 03:15 08/22/2016 Levaquin IVPB Continued: at the rate of 100 mL/hr. 40 mL remaining bag #1. IV patency established. IV site checked: no pain, redness, or swelling. IV flushed thoroughly. --03:15 Kenton Guadarrama R.N. Departure time: 03:31. --03:31 Kenton Guadarrama R.N. Locked/Released at 08/22/2016 4:41 by Kenton Guadarrama R.N.
--- NOTE | 2016-08-22 01:45 | ED NURSING NOTES ---
Clinical Report - Nurses [facility] [place] [address] 08/21/2016 20:21 Patient: KOLE BLACK TRIAGE Triage time 20:25. Acuity: LEVEL 3. Chief Complaint: CHEST PAIN. --20:31 Emile Jamil R.N. 20:25 08/21/16. BP: 178/91. HR: 107. RR: 24. O2 saturation: 100%. Pain level now 7/10. --20:31 Emile Jamil R.N. Weight: 63.5 kg stated. Height/Length: 61 inches Per Patient. BMI: 26.5. --20:30 Emile aJmil R.N. Medications Acetaminophen Oral, as needed. --20:29 Emile Jamil R.N. Medication/allergy information source: the patient. --20:31 Emile Jamil R.N. Allergies Penicillins. Sulfa Antibiotics. --20:29 Emile Jamil R.N. History Arrived by private vehicle. Historian: patient. Accompanied by family. This started just prior to arrival. ( Pt is having cp that just started. Left sided chest pain. Pt denies any n/v. Pt does have a cough with sinus infection. 7/10 that is aching to sharp and worse on deep breathing.). Treatment CASINO GAMING WORKER: None. PAST MEDICAL HX: No history of diabetes mellitus, hypertension, heart disease or lung disease. Immunizations: (none). SOCIAL HX: Never smoker. No alcohol use or drug use. --20:31 Emile Jamil R.N. PROBLEMS: Viral Disease. --20:29 Emile Jamil R.N. Interventions ID band on patient. To treatment room. --20:31 Emile Jamil R.N. NURSING PROGRESS NOTES 20:31 08/21/2016 Site #1 started via IV in the left antecubital space with an 20g angiocath, with aseptic technique and good blood return; one attempt. Blood drawn: rainbow set. Labeled in the presence of the patient and sent to the lab. Saline lock flushed with 10 mL saline. --20:31 Emile Jamil R.N. The plan of care for this patient has been created. monitoring and evaluation advisor, pulse oximeter and NIBP monitor placed on patient; monitoring and evaluation advisor- Lead II. EKG time: (2033). EKG was performed by a tech and shown to the ED physician. Patient gowned. Head of bed elevated. Reassurance given. Two patient identifiers checked. Call light placed in reach. Side rails up x 1. Bed placed in lowest position. --20:32 Emile Jamil R.N. 20:38 08/21/2016 Aspirin PO 325 mg given. Allergies verified and confirmed 5 rights. --20:41 Kenton Guadarrama R.N. 22:11 08/21/16. BP: 151/78. HR: 104. RR: 17. O2 saturation: 99% on nasal cannula at 2 liters/minute. Pain level now: 01/20. --22:12 Kenton Guadarrama R.N. 22:11. Cardiac rhythm: sinus tachycardia. The patient is calm and resting quietly. --22:12 Kenton Guadarrama R.N. 22:14 Patient assisted to restroom to collect urine sample. --22:15 Kenton Guadarrama R.N. 00:04 08/22/2016 Started bag #1 1000 mL IV Fluids IV NS (Saline); at 1000 mL/hr over 30 minute(s) via site #1 via IV pump. IV patency established. IV site checked: no pain, redness, or swelling. IV flushed thoroughly pre- and post-medication administration. --00:11 Kenton Guadarrama R.N. 00:06 08/22/2016 Zofran (Ondansetron HCl) IVP 4 mg given over 2 minute(s) via site #1. Allergies verified and confirmed 5 rights. IV patency established. IV site checked: no pain, redness, or swelling. IV flushed thoroughly pre- and post-medication administration. --00:12 Kenton Guadarrama R.N. 00:08 08/22/2016 Dilaudid (HYDROmorphone HCl PF) IVP 0.5 mg given over 2 minute(s) via site #1. Allergies verified, confirmed 5 rights and sedative warning given to the patient and patient's family. IV patency established. IV site checked: no pain, redness, or swelling. IV flushed thoroughly pre- and post-medication administration. --00:12 Kenton Guadarrama R.N. Patient ID band checked for patient name and birthdate: patient confirmed. Clean catch urine collected with return of yellow-colored clear urine. Specimen labeled in the presence of the patient. --00:13 Kenton Guadarrama R.N. Cardiac rhythm: sinus tachycardia. The patient is calm and resting quietly. RESPIRATORY: No respiratory distress. SKIN: Skin is warm and dry. Skin color within normal limits. --00:13 Kenton Guadarrama R.N. 00:13 08/22/16. BP: 166/85. HR: 114. RR: 19. O2 saturation: 97% on nasal cannula at 2 liters/minute. --00:13 Kenton Guadarrama R.N. 00:45 08/22/2016 Dilaudid (HYDROmorphone HCl PF) IVP 0.5 mg given over 30 second(s) via site #1. Allergies verified, confirmed 5 rights and sedative warning given to the patient. IV patency established. IV site checked: no pain, redness, or swelling. IV flushed thoroughly pre- and post-medication administration. IVP given by RN (given per verbal order from EDMD). --00:45 Amelia Diaz R.N. 00:35 educational technician with pt for exam. --01:04 Kenton Guadarrama R.N. 01:02. Patient transported to [place] by stretcher with tech. --01:14 Kenton Guadarrama R.N. 01:13. Patient returned from CT by stretcher with tech. --01:15 Kenton Guadarrama R.N. 01:42 information technology associate with pt for blood draw. --01:53 Kenton Guadarrama R.N. 02:13 08/22/2016 Started 750 mg of Levaquin (Levofloxacin) IVPB in bag #1 150 mL; at 100 mL/hr over 1.5 hour(s) via site #1 via IV pump. Allergies verified and confirmed 5 rights. IV patency established. IV site checked: no pain, redness, or swelling. IV flushed thoroughly pre- and post-medication administration. --02:13 Kenton Guadarrama R.N. 02:47 08/22/2016 Dilaudid (HYDROmorphone HCl PF) IVP 0.5 mg given over 2 minute(s) via site #1. Allergies verified, confirmed 5 rights and sedative warning given to the patient. IV patency established. IV site checked: no pain, redness, or swelling. IV flushed thoroughly pre- and post-medication administration. --02:47 Kenton Guadarrama R.N. 02:50 08/22/2016 Zofran (Ondansetron HCl) IVP 4 mg given over 2 minute(s) via site #1. Allergies verified and confirmed 5 rights. IV patency established. IV site checked: no pain, redness, or swelling. IV flushed thoroughly pre- and post-medication administration. --02:50 Kenton Guadarrama R.N. 03:19 08/22/2016 PHENERGAN (Promethazine HCl) IVP 12.5 mg given over 2 minute(s) via site #1. Allergies verified and confirmed 5 rights. IV patency established. IV site checked: no pain, redness, or swelling. IV flushed thoroughly pre- and post-medication administration. --03:19 Kenton Guadarrama R.N. DISPOSITION / DISCHARGE Condition at departure: stable. No learning barriers present. Admitted to Acute Care. Patient's personal items include: glasses, Other belongings; items were placed in belongings bag and transported with the patient. She did not have contacts, dentures or a hearing aid. FALL RISK ASSESSMENT: Fall risk assessment completed. No fall risk identified. --02:56 Kenton Guadarrama R.N. 02:51 08/22/16. BP: 140/86. HR: 95. RR: 25. O2 saturation: 98% on nasal cannula at 2 liters/minute. Pain level now: 11/20. --02:56 Kenton Guadarrama R.N. 03:13. Report was given via a phone call. Report included patient's care, treatment, medications, reviewed medication reconcilliation, and condition (including any recent changes or anticipated changes). All questions were answered. Report was acknowledged. (Silvia ALVARENGApalliative care nurse). --03:13 Kenton Guadarrama R.N. 03:15 08/22/2016 IV Fluids IV NS Continued: upon admission at the rate of 125 mL/hr. 225 mL remaining bag #1. IV patency established. IV site checked: no pain, redness, or swelling. IV flushed thoroughly. --03:15 Kenton Guadarrama R.N. 03:15 08/22/2016 Levaquin IVPB Continued: at the rate of 100 mL/hr. 40 mL remaining bag #1. IV patency established. IV site checked: no pain, redness, or swelling. IV flushed thoroughly. --03:15 Kenton Guadarrama R.N. Departure time: 03:31. --03:31 Kenton Guadarrama R.N. Locked/Released at 08/22/2016 4:41 by Kenton Guadarrama R.N.
[2016-08-22] MEDS ORDERED: TYLENOL325 MG PO (03:55)
--- NOTE | 2016-08-22 03:57 | NUR ---
PATIENT TO ROOM 209A FROM THE ER VIA [facility]. DENIES ANY NAUSEA OR VOMITTING AT THIS TIME, COMPLAINS ONLY OF PLUERITIC PAIN WHEN COUGHING, BUT NO CHEST PAIN. IS SLIGHTLY GROGGY FROM THE IV DILAUDID. AMBUALTED TO BED FROM [facility], IVF AT 125CC/HOUR. WILL MONITOR. LEVAQUIN INFUSED UPON TRANSFER TO ROOM FROM THE ER.
[2016-08-22 04:26] VITALS: BP 151/94
--- NOTE | 2016-08-22 04:41 | ED MAR SUMMARY ---
..... Medication Administration Record [facility] [address] [facility] [facility] [address] Patient: KOLE BLACK Visit ID: [id number] 55y, F Weight: 63.5 kg Height/Length: 61 in BMI: 26.5 ALLERGIES: Penicillins, Sulfa Antibiotics Given 20:38 08/21/2016 Kenton Guadarrama R.N. Medication Administered: ASPIRIN [PO], Dose: 325 mg PO. Medication Ordered: Aspirin PO 325 mg (NOW). Start 00:04 08/22/2016 Kenton Guadarrama R.N., Continued Upon Admission 03:15 08/22/2016 Kenton Guadarrama R.N. Medication Administered: IV NS (SALINE), Dose: IV Fluids over 30 minute(s), Rate: 1000 mL/hr, Dispensed: 1000 mL bag, Site: #1 left AC. Medication Ordered: IV NS : initial bolus 500 mL (1000 mL/hr), then 125 mL/hr for 4h (NOW); Urgent. Given 00:06 08/22/2016 Kenton Guadarrama R.N. Medication Administered: ZOFRAN [IVP] (ONDANSETRON HCL), Dose: 4 mg IVP over 2 minute(s), Site: #1 left AC. Medication Ordered: Zofran IV 4 mg (NOW). Given 00:08 08/22/2016 Kenton Guadarrama R.N. Medication Administered: DILAUDID [IVP] (HYDROMORPHONE HCL PF), Dose: 0.5 mg IVP over 2 minute(s), Site: #1 left AC. Medication Ordered: Dilaudid IV 0.5 mg (HIGH ALERT MEDICATION, NOW). Given 00:45 08/22/2016 Amelia Diaz R.N. Medication Administered: DILAUDID [IVP] (HYDROMORPHONE HCL PF), Dose: 0.5 mg IVP over 30 second(s), Site: #1 left AC. Medication Ordered: Dilaudid IV 0.5 mg (HIGH ALERT MEDICATION, NOW). Start 02:13 08/22/2016 Kenton Guadarrama R.N., Continued Upon Disposition 03:15 08/22/2016 Kenton Guadarrama R.N. Medication Administered: LEVAQUIN [IVPB] (LEVOFLOXACIN), Dose: 750 mg IVPB over 1.5 hour(s), Rate: 100 mL/hr, Dispensed: 150 mL bag, Site: #1 left AC. Medication Ordered: Levaquin IV 750 mg/150 mL (NOW). Given 02:47 08/22/2016 Kenton Guadarrama R.N. Medication Administered: DILAUDID [IVP] (HYDROMORPHONE HCL PF), Dose: 0.5 mg IVP over 2 minute(s), Site: #1 left AC. Medication Ordered: Dilaudid IV 0.5 mg (HIGH ALERT MEDICATION, NOW). Given 02:50 08/22/2016 Kenton Guadarrama R.N. Medication Administered: ZOFRAN [IVP] (ONDANSETRON HCL), Dose: 4 mg IVP over 2 minute(s), Site: #1 left AC. Medication Ordered: Zofran IV 4 mg (NOW). Given 03:19 08/22/2016 Kenton Guadarrama R.N. Medication Administered: PHENERGAN [IVP] (PROMETHAZINE HCL), Dose: 12.5 mg IVP over 2 minute(s), Site: #1 left AC. Medication Ordered: Phenergan IV 12.5 mg (NOW).
--- NOTE | 2016-08-22 04:41 | ED MED RECONCILIATION SUMMARY ---
Patient: KOLE BLACK Medication Reconciliation Report [facility] VisitID: [id number] [address] [place] [address] 55y, F Registration Date/Time: 08/21/2016 Weight: 63.5 kg Height/Length: 61 in. BMI: 26.5 ALLERGIES: Penicillins, Sulfa Antibiotics The patient's Home Medications are listed below: THE FOLLOWING MEDICATIONS NEED TO BE RECONCILED: Acetaminophen Oral The source(s) of the original Home Medication information: patient The following Medications were given to the patient in the Emergency Department: Aspirin [PO] PO 325 mg, administered: 08/21/2016 8:38:00 PM IV NS IV Fluids bolus 0, then 1000 mL/hr, administered: 08/22/2016 12:04:00 AM Zofran [IVP] IVP 4 mg, administered: 08/22/2016 12:06:00 AM Dilaudid [IVP] IVP 0.5 mg, administered: 08/22/2016 12:08:00 AM Dilaudid [IVP] IVP 0.5 mg, administered: 08/22/2016 12:45:00 AM Levaquin [IVPB] IVPB bolus 0, then 750 mg 100 mL/hr, administered: 08/22/2016 2:13:00 AM Dilaudid [IVP] IVP 0.5 mg, administered: 08/22/2016 2:47:00 AM Zofran [IVP] IVP 4 mg, administered: 08/22/2016 2:50:00 AM PHENERGAN [IVP] IVP 12.5 mg, administered: 08/22/2016 3:19:00 AM The following Medications were prescribed to the patient: None.
--- NOTE | 2016-08-22 04:41 | ED MED RECONCILIATION SUMMARY ---
Patient: KOLE BLACK Medication Reconciliation Report [facility] VisitID: [id number] [address] [place] [address] 55y, F Registration Date/Time: 08/21/2016 Weight: 63.5 kg Height/Length: 61 in. BMI: 26.5 ALLERGIES: Penicillins, Sulfa Antibiotics The patient's Home Medications are listed below: THE FOLLOWING MEDICATIONS NEED TO BE RECONCILED: Acetaminophen Oral The source(s) of the original Home Medication information: patient The following Medications were given to the patient in the Emergency Department: Aspirin [PO] PO 325 mg, administered: 08/21/2016 8:38:00 PM IV NS IV Fluids bolus 0, then 1000 mL/hr, administered: 08/22/2016 12:04:00 AM Zofran [IVP] IVP 4 mg, administered: 08/22/2016 12:06:00 AM Dilaudid [IVP] IVP 0.5 mg, administered: 08/22/2016 12:08:00 AM Dilaudid [IVP] IVP 0.5 mg, administered: 08/22/2016 12:45:00 AM Levaquin [IVPB] IVPB bolus 0, then 750 mg 100 mL/hr, administered: 08/22/2016 2:13:00 AM Dilaudid [IVP] IVP 0.5 mg, administered: 08/22/2016 2:47:00 AM Zofran [IVP] IVP 4 mg, administered: 08/22/2016 2:50:00 AM PHENERGAN [IVP] IVP 12.5 mg, administered: 08/22/2016 3:19:00 AM The following Medications were prescribed to the patient: None.
--- NOTE | 2016-08-22 04:41 | ED DISCHARGE INSTRUCTIONS ---
Patient: KOLE BLACK General Instructions [facility] VisitID: [id number] [address] [place] [address] 55y, F Registration Date/Time: 08/21/2016 Pneumonia. (Electronically signed by Chun Quintanilla MD 08/22/2016 3:49)
--- NOTE | 2016-08-22 04:41 | ED DISCHARGE INSTRUCTIONS ---
Patient: KOLE BLACK General Instructions [facility] VisitID: [id number] [address] [place] [address] 55y, F Registration Date/Time: 08/21/2016 Pneumonia. (Electronically signed by Chun Quintanilla MD 08/22/2016 3:49)
--- NOTE | 2016-08-22 04:41 | ED MAR SUMMARY ---
..... Medication Administration Record [facility] [address] [place] [address] Patient: KOLE BLACK Visit ID: [id number] 55y, F Weight: 63.5 kg Height/Length: 61 in BMI: 26.5 ALLERGIES: Penicillins, Sulfa Antibiotics Given 20:38 08/21/2016 Kenton Guadarrama R.N. Medication Administered: ASPIRIN [PO], Dose: 325 mg PO. Medication Ordered: Aspirin PO 325 mg (NOW). Start 00:04 08/22/2016 Kenton Guadarrama R.N., Continued Upon Admission 03:15 08/22/2016 Kenton Guadarrama R.N. Medication Administered: IV NS (SALINE), Dose: IV Fluids over 30 minute(s), Rate: 1000 mL/hr, Dispensed: 1000 mL bag, Site: #1 left AC. Medication Ordered: IV NS : initial bolus 500 mL (1000 mL/hr), then 125 mL/hr for 4h (NOW); Urgent. Given 00:06 08/22/2016 Kenton Guadarrama R.N. Medication Administered: ZOFRAN [IVP] (ONDANSETRON HCL), Dose: 4 mg IVP over 2 minute(s), Site: #1 left AC. Medication Ordered: Zofran IV 4 mg (NOW). Given 00:08 08/22/2016 Kenton Guadarrama R.N. Medication Administered: DILAUDID [IVP] (HYDROMORPHONE HCL PF), Dose: 0.5 mg IVP over 2 minute(s), Site: #1 left AC. Medication Ordered: Dilaudid IV 0.5 mg (HIGH ALERT MEDICATION, NOW). Given 00:45 08/22/2016 Amelia Diaz R.N. Medication Administered: DILAUDID [IVP] (HYDROMORPHONE HCL PF), Dose: 0.5 mg IVP over 30 second(s), Site: #1 left AC. Medication Ordered: Dilaudid IV 0.5 mg (HIGH ALERT MEDICATION, NOW). Start 02:13 08/22/2016 Kenton Guadarrama R.N., Continued Upon Disposition 03:15 08/22/2016 Kenton Guadarrama R.N. Medication Administered: LEVAQUIN [IVPB] (LEVOFLOXACIN), Dose: 750 mg IVPB over 1.5 hour(s), Rate: 100 mL/hr, Dispensed: 150 mL bag, Site: #1 left AC. Medication Ordered: Levaquin IV 750 mg/150 mL (NOW). Given 02:47 08/22/2016 Kenton Guadarrama R.N. Medication Administered: DILAUDID [IVP] (HYDROMORPHONE HCL PF), Dose: 0.5 mg IVP over 2 minute(s), Site: #1 left AC. Medication Ordered: Dilaudid IV 0.5 mg (HIGH ALERT MEDICATION, NOW). Given 02:50 08/22/2016 Kenton Guadarrama R.N. Medication Administered: ZOFRAN [IVP] (ONDANSETRON HCL), Dose: 4 mg IVP over 2 minute(s), Site: #1 left AC. Medication Ordered: Zofran IV 4 mg (NOW). Given 03:19 08/22/2016 Kenton Guadarrama R.N. Medication Administered: PHENERGAN [IVP] (PROMETHAZINE HCL), Dose: 12.5 mg IVP over 2 minute(s), Site: #1 left AC. Medication Ordered: Phenergan IV 12.5 mg (NOW).
[2016-08-22 06:48] VITALS: BP 116/65
--- NOTE | 2016-08-22 07:13 | DIAGNOSTIC IMAGING REPORT ---
PROCEDURE: US ABDOMEN ULTRASOUND-LIMITED INDICATION: Abnormal liver function studies. TECHNIQUE: Lofton scale and color Doppler sonographic images of the abdomen were obtained. COMPARISON: None. FINDINGS: Gallbladder is normal. No evidence of gallstones. Common duct is normal (5 mm). Portions of the liver are seen, and there is mild fatty infiltration. Portions of the pancreas and right kidney are seen, and are normal. IMPRESSION: 1. Mild fatty infiltration of the liver. 2. Otherwise negative ultrasound of the gallbladder and right upper quadrant.
--- NOTE | 2016-08-22 07:36 | DIAGNOSTIC IMAGING REPORT ---
PROCEDURE: CTA THORAX WITH CONTRAST INDICATION: Left chest pain. Elevated D-dimer. TECHNIQUE: 82 ml of Isovue 370 was injected intravenously and axial images were obtained of the entire thorax with 3D sagittal and coronal MIP reconstructions. Preliminary report provided by Ananya Kraft MD ([facility]). COMPARISON: Compared to chest x-ray on 08/21/2016. FINDINGS: There is moderate left and mild right basilar consolidation/atelectasis. Mid and upper lung are clear. Pulmonary vessels are normal and there is no evidence of pulmonary embolus. There is mild gaseous distention of the distal esophagus. Mediastinum is otherwise normal. Heart is of normal size. . Moderate fatty infiltration of the liver. IMPRESSION: 1. Mild to moderate bibasilar atelectasis and consolidation with air in the distal esophagus. One might consider the possibility of aspiration pneumonia (versus bacterial). 2. Otherwise negative CT pulmonary arteriogram. No evidence of pulmonary embolus. 3. Fatty infiltration of the liver. 4. Findings discussed with Dr. Chun Quintanilla. All CT scans at this facility use dose modulation, iterative reconstruction, and/or weight-based dosing when appropriate to reduce radiation dose to as low as reasonably achievable.
--- NOTE | 2016-08-22 07:48 | HISTORY AND PHYSICAL ---
ADMITTED: 08/22/2016 CHIEF COMPLAINT: 1. Cough 2. Left lower chest pain HISTORY OF PRESENT ILLNESS: The patient is a 56-year-old lady who developed a viral type illness starting 08/05/2016. She developed nausea, vomiting, and diarrhea/loose stools and low-grade fever and felt ill for several days. Since then, she has simply felt out of sorts. She has had decreased energy level. She has developed a cough over the last several days. Today, the cough worsened significantly and became associated with quite severe left lower chest pain. She had been in the emergency department a day or two before and had had a normal-appearing chest x-ray and was advised she had a virus. She felt she should come back today due to the severity of the pain that she was noticing with trying to breathe. Evaluation in the emergency department showed an elevated D-dimer, and the patient ended up having a CT angiogram. This demonstrated a dense infiltrate in the left lower lung area, which did not really show up on standard chest x-ray. She also showed no evidence of pulmonary emboli. She did have an elevated white blood cell count and was started on levofloxacin 750 mg once daily in the emergency department. She has not had problems with pneumonia in the past. MEDICAL/SURGICAL HISTORY: Medical history is unremarkable for major medical problems. Past surgical history is remarkable for childbirth x5; all spontaneous vaginal deliveries. He has had no other surgeries. MEDICATIONS: 1. Only Tylenol, which she has been taking for pain. ALLERGIES: 1. PENICILLIN. 2. SULFA. SOCIAL HISTORY: The patient is and has been a housewife most of the time. She has had some work outside the home, but limited. She and her recently moved to the [facility] from the [facility], I believe. This patient does not smoke or drink alcohol or use other drugs. FAMILY HISTORY: Indicates that her mother is living and is 80 years old and has developed chronic end-stage kidney disease and is about to be transitioned to comfort care only. The patient's father at age 78 of a lymphoma. He also had some heart problems and had a pacemaker. REVIEW OF SYSTEMS: HEENT has been okay. Respiratory: As noted above. Cardiovascular has been okay, with no problems with heart or blood pressure. Gastrointestinal: Has been okay recently, with no persistent nausea or vomiting or diarrhea. Genitourinary: Okay , with no blood in urine or vaginal bleeding or discharge. Musculoskeletal: Okay except for the lower chest wall area, which is quite painful with breathing. Neurologic: Okay. Psychiatric: Okay, with no depression problems. Skin is okay with no unusual rashes. PHYSICAL EXAMINATION: GENERAL: Shows the patient to be a white female, appearing to be of her stated age. VITAL SIGNS: Temperature is 97.9. Pulse is 90-120. Respiratory rate is 20. Blood pressure is 150-170/80s-90s. Oxygen saturation 97% on room air. HEENT: Head is normal. Ear canals and tympanic membranes are normal. Eyes show normal extraocular movements and clear conjunctivae and sclerae. Funduscopic exam revealing flat discs and normal vessels. Nose and throat are clear. NECK: Supple. There is no significant adenopathy. BREASTS: Show no masses. There is no axillary adenopathy. CHEST: Reveals quite decreased breath sounds in the left base and somewhat of a bronchial component noted in the left base. There is no pronounced wheezing. HEART: Reveals normal S1 and S2 with a grade 1/6 systolic murmur along the left sternal border. ABDOMEN: Nontender, with no organomegaly or mass. Bowel tones are normal. EXTREMITIES: Show no edema. Peripheral pulses normal. NEUROLOGIC: Reveals the patient to be alert and oriented x3. Cranial nerves are symmetric. Motor and sensory exams are normal. SKIN: Normal. PELVIC: Not done. RECTAL: Not done. LAB/IMAGING: Laboratory studies show sodium to be 136, potassium 3.8, chloride 99, CO2 of 32, glucose 162, BUN 12, creatinine 0.8. White blood cell count is 15,300 with a left shift. Respiratory rate is 18. Hemoglobin is 13.5, hematocrit is 42. D-dimer is 0.68. SGOT is 59, SGPT is 99. Alkaline phosphatase is 129. Troponin I is less than 0.05. Procalcitonin was slightly elevated at 0.6. Chest x-ray was normal. Chest CT angiogram showed consolidation at left lower lung area with no evidence of emboli. EKG shows sinus rhythm, bordering on tachycardia, with EKG otherwise being normal. IMPRESSION: 1. The patient is presenting with development of a left lower lung infiltrate and signs and symptoms of significant pleurodynia. She has an underlying history of pulmonary disease. She also is showing somewhat elevated transaminases. Abdominal ultrasound showed evidence of fatty changes in the liver but no other significant abnormalities. The patient does have quite severe pleurodynia associated with pneumonia, and this is the main reason for admission. PLAN: The patient is admitted and will continue with levofloxacin at 750 mg administered intravenously daily, at least for the first 2 or 3 doses. She will also be started on ketorolac 15 mg every 6 hours, to see if this will be helpful for pain, and will be prescribed hydromorphone for breakthrough pain and oral acetaminophen for less severe pain. She will continue intravenous fluids to ensure hydration. She will be started on bronchial hygiene protocol and will use incentive spirometry every hour while awake, days and evenings. She will have liver test repeated. If blood sugar remains elevated , she may need to have hemoglobin A1c checked.
--- NOTE | 2016-08-22 08:27 | NUR ---
PATIENT SITTING UP IN BED FOR BREAKFAST. AUSCULTATED CRACKLES IN BILAT BASES. GAVE PATIENT INCENTIVE SPIROMETER AND INSTRUCTED ON ITS USE AND PATIENT DEMONSTRATED BACK WELL. INSTRUCTED TO USE EVERY HOUR. PUT PATIENT ON RA DUE TO HIGH SATS ON 2LNC. SEE SHIFT ASSESSMENT FOR FURTHER DETAILS.
[2016-08-22 10:35] VITALS: BP 129/83
--- NOTE | 2016-08-22 12:02 | DIAGNOSTIC IMAGING REPORT ---
PROCEDURE: XR RIBS BILATERAL W/PA CHEST INDICATION: cough with severe pain TECHNIQUE: Two views of the left ribs with single PA view chest. COMPARISON: None. FINDINGS: LEFT RIBS: No displaced rib fractures. No suspicious rib lesions. CHEST: There is left lower lobe infiltrate and effusion. Heart size is normal. IMPRESSION: 1. Intact left ribs. 2. Left lower lobe infiltrate and effusion
--- NOTE | 2016-08-22 13:31 | NUR ---
PATIENT RESTING IN BED. COMFORTABLE AFTER MEDICATED WITH DILAUDID. TYLENOL DID NOT HELP PAIN.
[2016-08-22 15:04] VITALS: BP 147/90
--- NOTE | 2016-08-22 16:42 | NUR ---
LAB CALLED BC +, GRAM + COCCI. RESULTS CALLED TO DR. SYEDA. RUEDA TO CHANGE IV ABO'S.
[2016-08-22 18:19] VITALS: BP 138/77
[2016-08-22 23:02] VITALS: BP 140/80
--- NOTE | 2016-08-22 23:51 | NUR ---
Pt. is resting in bed at this time. at bedside earlier. Pt. c/o nausea upon walking to the bathroom and became flushed. Was dry heaving. Called Dr. Sexton and reported nausea, received new order for zofran and administered with good effect. Pt. is on RA and denies SOB. Encouraging use of IS, pt. uses up to 500-1000. Resting in bed comfortably. IV fluids infusing without issues. Call light within reach. TM.
--- NOTE | 2016-08-23 00:55 | Progress Note ---
Subjective General I was asked to see this patient by hospitalist. Breathing very mildly improved. Up walking today. Still feeling very sickly. No nausea, vomitting, diarrhea, constipation, or abdominal pain. No chest pain. Physical Exam Vital Signs / I&Os Vital Signs Date Time Temp Pulse Resp B/P Pulse O2 O2 Flow FiO2 Ox Delivery Rate 08/22 2353 2.0 08/22 2302 37.6 108 20 140/80 91 Room Air 08/22 1819 37.7 102 20 138/77 94 Room Air 08/22 1504 37.2 95 16 147/90 90 Room Air 08/22 1107 99 08/22 1035 37.1 103 18 129/83 99 Nasal 2.0 Cannula 08/22 0740 2.0 08/22 0648 36.7 81 18 116/65 99 Nasal 2.0 Cannula 08/22 0426 36.6 95 20 151/94 97 Room Air 08/22 0410 Nasal 2.0 Cannula 08/22 0406 2.0 I&O 08/23 0000 08/22 1600 08/22 0800 Intake Total 1600 360 209 Output Total 1125 700 Balance 475 -340 209 General Appearance Alert, Cooperative, No acute distress Lungs Clear except for crackles in lower arreaga, worse on right. Cardiovascular Regular rate and rhythm, Normal S1 and S2, No murmurs, gallops, rubs Abdomen Normal bowel sounds, Soft, No tenderness Extremities No edema Assessment and Plan Problem List 1. Pneumonia Plan Possibly very mildly improved with IV antibiotics. 2. Bacteremia Plan Awaiting final sensitivities on blood cultures.
[2016-08-23 03:00] VITALS: BP 138/71
--- NOTE | 2016-08-23 05:19 | NUR ---
Pt. resting in bed. Continues to c/o rib pain while coughing. Administered dilaudid as ordered, along with zofran as pt. states the dilaudid makes her nauseous. Effective. Pt. is now saline locked. States that her SOB has not worsened or improved. WCTM.
--- NOTE | 2016-08-23 05:35 | NUR ---
Pt. is ambulating halls at this time. Walked two loops around the unit, tolerated well. Pt. is also using incentive spirometer this morning.
[2016-08-23 07:17] VITALS: BP 134/70
--- NOTE | 2016-08-23 09:00 | NUR ---
PT ATE BREAKFAST AND HAS BEEN PLACED ON NPO STATUS AT THIS TIME. SHE WAS INFORMED OF THIS.
--- NOTE | 2016-08-23 09:52 | NUR ---
PT WAS ABLE TO AMBULATE AROUND THE HALLWAY. LUNG DIMISHED IN BASES AND SHE IS USING INCENTIVE SPIROMETER UP TO 750CC. PT HAS GOOD COLOR AND LAC IL IS PATENT.
[2016-08-23 11:33] VITALS: BP 143/74
[2016-08-23 14:50] VITALS: BP 162/88
--- NOTE | 2016-08-23 15:51 | Progress Note ---
Subjective General Patient is seen at the bedside, donaldo abbott is feeling much better, no overnight issues, Constitutional Denies: Fever, Chills, Weakness. Eyes Denies: Pain, Redness. ENT Denies: Nasal Discharge, Nasal Congestion, Throat Pain, Throat Swelling. Respiratory Pleuritic Pain. Denies: Cough, Dry, SOB w/exertion, Wheezing. Cardiovascular Denies: Chest Pain, Palpitations, Orthopnea, PND, Edema. Gastrointestinal Denies: Nausea, Vomiting, Abdominal Pain, Diarrhea, Constipation. Genitourinary Denies: Dysuria, Frequency, Incontinence, Hematuria. Neurological Denies: Incoordination, Change in speech. Physical Exam Vital Signs / I&Os Vital Signs Date Time Temp Pulse Resp B/P Pulse O2 O2 Flow FiO2 Ox Delivery Rate 08/23 1450 98.4 101 20 162/88 99 Room Air 08/23 1133 98.1 90 20 143/74 99 Room Air 0.0 08/23 0717 98.1 85 20 134/70 99 Nasal 2.0 Cannula 08/23 0300 98.4 99 20 138/71 90 Room Air 08/22 2353 2.0 08/22 2302 99.7 108 20 140/80 91 Room Air 08/22 1819 99.9 102 20 138/77 94 Room Air I&O 08/22 0800 08/22 1600 08/23 0000 Intake Total 556 976 0511 Output Total 700 1125 Balance 209 -340 475 General Appearance Alert, Oriented X3, No acute distress HEENT PERRLA Lungs Clear to auscultation, Normal air movement Neck Supple, No JVD Cardiovascular Normal exam, Regular rate and rhythm, Normal S1 and S2, No murmurs, gallops, rubs Abdomen Soft, No tenderness, No guarding, No rebound Extremities No edema Skin No Rashes, No Breakdown, No Significant Lesions Neurological No lateralizing signs LAB Results Laboratory Tests 08/23 08/23 0540 0540 Chemistry Plasma Sodium (136 - 145 mmol/L) 141 Plasma Potassium (3.5 - 5.1 mmol/L) 4.7 Plasma Chloride (98 - 107 mmol/L) 105 CO2 (Enzymatic) (21 - 32 mmol/L) 28 BUN (7 - 18 mg/dL) 15 Creatinine (0.6 - 1.3 mg/dL) 0.7 Est GFR ( Amer) (mL/min) >60 Est GFR (Non-Af Amer) (mL/min) >60 Glucose (70 - 110 mg/dL) 94 Plasma Calcium (8.5 - 10.1 mg/dL) 8.9 Plasma Magnesium (1.8 - 2.4 mg/dL) 2.1 Total Bilirubin (0.0 - 1.0 mg/dL) 0.4 Direct Bilirubin (0 - 0.3 mg/dL) 0.2 AST (15 - 37 U/L) 210 ALT (12 - 78 U/L) 304 Alkaline Phosphatase (46 - 116 U/L) 155 Total Protein (6.4 - 8.2 g/dL) 6.6 Albumin (3.3 - 5.0 g/dL) 2.7 Amylase (25 - 115 U/L) 36 Lipase (73 - 393 U/L) 103 Hematology WBC (4.5 - 11.5 K/uL) 13.9 RBC (4.00 - 5.20 M/uL) 4.43 Hgb (12.0 - 16.0 gm/dL) 11.9 Hct (36.0 - 46.0 %) 37.9 MCV (80 - 100 fL) 85 MCH (26 - 34 pg) 27 RDW (11.6 - 14.8 %) 13.9 Neut % (Auto) (50 - 75 %) 79.6 Lymph % (Auto) (25 - 40 %) 11.9 [place] % (Auto) (3 - 14 %) 7.0 Eos % (Auto) (0 - 4 %) 1.2 Baso % (Auto) (0 - 2 %) 0.3 Plt Count, EDTA (150 - 400 K/uL) 351 PUBS MCHC (31 - 37 g/dL) 32 Assessment and Plan Problem List 1. Pneumonia Plan Patient subjectively feeling better says her pleuritic chest pain is still there but better then yesterday c/w ceftriaxone and azithromycin for now monitor mental status, vital signs and urine output pain meds, switch dialudid to vicodin will start on slow IV hydration again with half NS 2. Bacteremia Plan Blood culture growing strept final results pending follow up blood culture c/w ceftriaxone and zithromax 3. Abnormal liver function Plan liver function test trending up, cause unknown patient denies any h/o alcohol use, US liver consistent with fatty liver check acetaminopjhen and salicylates levels ammonia and heptitis panel for Hep A, B and C E&M Codes Rounding: Inpt-High/48302
[2016-08-23 18:10] VITALS: BP 145/82
--- NOTE | 2016-08-23 22:00 | NUR ---
PATIENT APPEARS TO GET FITS OF COUGH WHEN MOVING ABOUT. SHE WAS ENCORAGED TO USE HER I.S. AND WAS GIVEN PRN GUIAFENESIN TO HELP BREAK DOWN SECRETIONS. SHE HAD PRN VICODIN FRO MUSCLE SORENESS DUE TO COUGHING.
[2016-08-23 22:50] VITALS: BP 161/94
[2016-08-24 03:03] VITALS: BP 161/88
[2016-08-24 06:38] VITALS: BP 158/89
[2016-08-24 10:15] VITALS: BP 135/78
--- NOTE | 2016-08-24 12:54 | NUR ---
NUTRITION ASSESSMENT: S: Pt admitted with dx/o PNA, per H&P PMH otherwise undremarkable. Pt with good appetite per report, eating ~100%. Makes food preferences known. O: diet rx: General NKFA Wts: 66.3 kg ht: 61" BMI: 28 IBW: 56-63 kg %IBW: ~110% Est Kcals: 3010-8444 kcals per day Est Pro: ~60-75 g per day Est Fluids: ~1800 mls per day Meds Incl: Metoprolol, IVFs, IV ABO, see eMar for complete list/details. Labs: Rev'd. albumin 2.5, alk phos 155, ast 170, alt 316, ammonia 13, HCT 34.9, HGB 11 Skin: Jeremias Score 22 A/P: Pts appetite appears intact. General diet in place and appears appropriate at this time. Noted pt on HTN Rx and rev'd blood pressures, today 135/78. CBW >IBW, overweight category, no wt loss desired at this time 2/2, some gradual wt loss to IBW above may be beneficial after pt medically stable. Rev'd meds and labs. Per MD prog notes, monitoring liver enzymes. RD to follow up and monitor nutrition indices prn/protocol. RD avail for consult/education prn if desired. Per pt may d/c tomorrow.
--- NOTE | 2016-08-24 13:02 | NUR ---
PATIENT HAS BEEN STABLE THIS SHIFT AND HAS BEEN DOING WELL AMBULATING IN THE HALLWAY. PATIENT COMPLAINS OF CHEST DISCOMFORT FROM COUGHING AND HAS BEEN MEDICATED WITH TYLENOL AND COUGH MEDICINE. MD INDICATED THAT PATIENT IS LIKELY TO GO HOME TOMORROW.
--- NOTE | 2016-08-24 13:43 | Progress Note ---
Subjective General patient clinically better, blood cultures grew streptococcus pneumoniae, on ceftriaxone for that Constitutional Denies: Fever, Chills. Eyes Denies: Conjunctival Inflammation, Eyelid Inflammation, Redness. ENT Denies: Nasal Congestion, Mouth Pain, Mouth Swelling, Throat Pain, Throat Swelling. Respiratory Cough, Dry. Denies: SOB w/exertion, Wheezing, Hemoptysis. Cardiovascular Denies: Chest Pain, Palpitations, Orthopnea, PND, Edema. Gastrointestinal Denies: Nausea, Vomiting, Abdominal Pain, Diarrhea, Constipation. Genitourinary Denies: Dysuria, Frequency, Incontinence, Hematuria. Musculoskeletal Denies: Back Pain. Neurological Denies: Numbness, Incoordination, Change in speech, Confusion. Physical Exam Vital Signs / I&Os Vital Signs Date Time Temp Pulse Resp B/P Pulse O2 O2 Flow FiO2 Ox Delivery Rate 08/24 1059 Room Air 08/24 1015 97.9 93 18 135/78 96 Room Air 08/24 0638 98.6 95 18 158/89 92 Room Air 08/24 0303 98.4 92 20 161/88 94 Room Air 08/23 2347 94 Nasal 2.0 Cannula 08/23 2250 98.4 112 20 161/94 89 Room Air 08/23 1810 99.1 103 20 145/82 93 Room Air 08/23 1450 98.4 101 20 162/88 99 Room Air I&O 08/23 0800 08/23 1600 08/24 0000 Intake Total 50 720 619 Output Total 100 1350 670 Balance -50 -630 -51 General Appearance Alert, Oriented X3, No acute distress HEENT Normal exam, PERRLA, Moist mucous membranes Lungs roght sided ronchi Neck Supple, No JVD, No masses, No thyromegaly Cardiovascular Regular rate and rhythm, Normal S1 and S2 Abdomen Normal bowel sounds, Soft, No tenderness, No guarding Extremities No edema Neurological No lateralizing signs LAB Results Laboratory Tests 08/24 08/24 0515 0515 Chemistry Plasma Sodium (136 - 145 mmol/L) 139 Plasma Potassium (3.5 - 5.1 mmol/L) 4.2 Plasma Chloride (98 - 107 mmol/L) 105 CO2 (Enzymatic) (21 - 32 mmol/L) 31 BUN (7 - 18 mg/dL) 9 Creatinine (0.6 - 1.3 mg/dL) 0.6 Est GFR ( Amer) (mL/min) >60 Est GFR (Non-Af Amer) (mL/min) >60 Glucose (70 - 110 mg/dL) 94 Plasma Calcium (8.5 - 10.1 mg/dL) 8.8 Plasma Magnesium (1.8 - 2.4 mg/dL) 2.2 Total Bilirubin (0.0 - 1.0 mg/dL) 0.4 Direct Bilirubin (0 - 0.3 mg/dL) 0.1 AST (15 - 37 U/L) 170 ALT (12 - 78 U/L) 316 Alkaline Phosphatase (46 - 116 U/L) 155 Ammonia (11 - 32 umol/L) 13 Total Protein (6.4 - 8.2 g/dL) 7.0 Albumin (3.3 - 5.0 g/dL) 2.5 Hematology WBC (4.5 - 11.5 K/uL) 9.9 RBC (4.00 - 5.20 M/uL) 4.13 Hgb (12.0 - 16.0 gm/dL) 11.0 Hct (36.0 - 46.0 %) 34.9 MCV (80 - 100 fL) 85 MCH (26 - 34 pg) 27 RDW (11.6 - 14.8 %) 13.9 Neut % (Auto) (50 - 75 %) 68.2 Lymph % (Auto) (25 - 40 %) 18.6 [place] % (Auto) (3 - 14 %) 9.5 Eos % (Auto) (0 - 4 %) 2.3 Baso % (Auto) (0 - 2 %) 1.4 Plt Count, EDTA (150 - 400 K/uL) 353 PUBS MCHC (31 - 37 g/dL) 32 Toxicology Salicylates (2.8 - 20 mg/dL) <2.8 Acetaminophen (10 - 30 ug/mL) < 3 Assessment and Plan Problem List 1. Pneumonia Plan clinically improving on ceftriaxone d/c zithromax 2. Bacteremia Plan Blood cultures positive for strept pneumonae sensitivity pending on ceftriaoxne 3. Abnormal liver function Plan liver test stable acteaminophen salicylates levels normla pending hepatitis panel needs GI consult as an patient E&M Codes Rounding: Inpt-Moderate/56369
--- NOTE | 2016-08-24 14:09 | NUR ---
[facility] she requests that we contact her if there are any discharge needs. [phone]. Harman Torrez RN updated.
[2016-08-24 14:12] VITALS: BP 140/84
--- NOTE | 2016-08-24 14:41 | NUR ---
I discussed with the patient their current medications, possible side effects, and answered questions.
[2016-08-24 21:00] VITALS: BP 159/69
--- NOTE | 2016-08-24 23:58 | NUR ---
END SHIFT: PT STABLE, AMBULATORY. CHIEF COMPLAINT OF FREQUENT COUGHING AND PLEURISY. PRN TYLENOL AND COUGH SYRUP BEING GIVEN Q4 HOURS. PT RESPONDS WELL TO THIS. SHE IS ON ROOM AIR, RECEIVING ROCEPHIN, SOB WITH ACTIVITY. PT ABLE TO REST WELL THROUGHOUT THE DAY. VOIDING, SOME URGE INCONTINENCE WITH HER COUGHING BOUTS. LOSS OF APPETITE BUT PT DOES SNACK. VSS, AFEBRILE, IVF INFUSING ORDERED.
[2016-08-25 01:23] VITALS: BP 165/95
[2016-08-25 07:10] VITALS: BP 145/83
[2016-08-25 10:32] VITALS: BP 153/107
[2016-08-25 14:49] VITALS: BP 157/80
--- NOTE | 2016-08-25 16:44 | Progress Note ---
Subjective General Patient feeling better, says her pain is better with pain meds Constitutional Denies: Fever, Chills, Sweats. Respiratory Denies: Cough, Dry, SOB w/exertion, Wheezing. Cardiovascular Denies: Chest Pain, Palpitations, Orthopnea, PND, Edema. Gastrointestinal Denies: Nausea, Vomiting, Abdominal Pain, Diarrhea, Constipation. Genitourinary Denies: Dysuria, Frequency, Incontinence. Musculoskeletal Denies: Back Pain. Neurological Denies: Weakness, Numbness, Incoordination, Change in speech, Confusion, Seizures. Physical Exam Vital Signs / I&Os Vital Signs Date Time Temp Pulse Resp B/P Pulse O2 O2 Flow FiO2 Ox Delivery Rate 08/25 1449 99.3 95 15 157/80 94 Room Air 08/25 1032 99.1 128 16 153/107 93 Room Air 08/25 0825 Room Air 08/25 0710 98.8 82 16 145/83 95 Room Air 08/25 0123 99.0 85 18 165/95 96 Room Air 08/25 0015 Room Air 2.0 08/24 2100 98.8 99 18 159/69 95 Room Air 08/24 1713 Room Air I&O 08/24 0800 08/24 1600 08/25 0000 Intake Total 1304 1137 898 Output Total 1170 1300 1150 Balance 134 -163 -252 General Appearance Alert, Oriented X3, No acute distress HEENT PERRLA Lungs bilateral clear breath sounds Neck No JVD Cardiovascular Regular rate and rhythm, Normal S1 and S2 Abdomen Normal bowel sounds, Soft, No tenderness, No guarding Extremities No edema Neurological No lateralizing signs LAB Results Laboratory Tests 08/25 0540 Chemistry Plasma Sodium (136 - 145 mmol/L) 140 Plasma Potassium (3.5 - 5.1 mmol/L) 4.1 Plasma Chloride (98 - 107 mmol/L) 105 CO2 (Enzymatic) (21 - 32 mmol/L) 29 BUN (7 - 18 mg/dL) 6 Creatinine (0.6 - 1.3 mg/dL) 0.6 Est GFR ( Amer) (mL/min) >60 Est GFR (Non-Af Amer) (mL/min) >60 Glucose (70 - 110 mg/dL) 93 Plasma Calcium (8.5 - 10.1 mg/dL) 8.9 Plasma Magnesium (1.8 - 2.4 mg/dL) 2.2 Total Bilirubin (0.0 - 1.0 mg/dL) 0.4 Direct Bilirubin (0 - 0.3 mg/dL) 0.1 AST (15 - 37 U/L) 109 ALT (12 - 78 U/L) 292 Alkaline Phosphatase (46 - 116 U/L) 172 Total Protein (6.4 - 8.2 g/dL) 6.8 Albumin (3.3 - 5.0 g/dL) 2.4 Hematology WBC (4.5 - 11.5 K/uL) 9.9 RBC (4.00 - 5.20 M/uL) 4.18 Hgb (12.0 - 16.0 gm/dL) 11.1 Hct (36.0 - 46.0 %) 35.1 MCV (80 - 100 fL) 84 MCH (26 - 34 pg) 27 RDW (11.6 - 14.8 %) 14.0 Neut % (Auto) (50 - 75 %) 71.4 Lymph % (Auto) (25 - 40 %) 15.8 [place] % (Auto) (3 - 14 %) 10.2 Eos % (Auto) (0 - 4 %) 2.3 Baso % (Auto) (0 - 2 %) 0.3 Plt Count, EDTA (150 - 400 K/uL) 417 PUBS MCHC (31 - 37 g/dL) 32 Assessment and Plan Problem List 1. Pneumonia Plan on ceftriaxoen c/w it and c/w pain meds for now 2. Bacteremia Plan blood culture growing strept pneumoniae, sensitivu=ity still pending will c/w current antibiotics patient much better 3. Abnormal liver function Plan hold tylenol for now E&M Codes Rounding: Inpt-Moderate/06090
[2016-08-25 18:47] VITALS: BP 168/97
--- NOTE | 2016-08-25 19:53 | NUR ---
END SHIFT: PT STABLE, VSS, AFEBRILE, AMBULATORY, VOIDING, PLEURISY CONTROLLED WITH PO OXYCODONE. PT ANXIOUS TO GET HOME, PLANS TO GET A PCP P DISCHARGE AND THEN REFERRAL TO GI DOC.
[2016-08-25 22:36] VITALS: BP 161/79
--- NOTE | 2016-08-26 02:04 | NUR ---
Patient ambulated to bathroom and tolerated well. Slightly SOB and coughing. Denied need for pain meds. No nausea, head ache or abd pain. VSS until ambulating where HR becomes tachy. Encouraged use of IS. Currently sleeping with sleep mask and ear plugs. WCTM.
[2016-08-26 02:23] VITALS: BP 150/83
[2016-08-26 06:41] VITALS: BP 158/91
[2016-08-26] MEDS ORDERED: OXYCODONE IR PO (12:25)
[2016-08-26] MEDS ORDERED: CODEINE PO (12:26)
[2016-08-26] MEDS ORDERED: GUAIFENESIN PO (12:26)
[2016-08-26] MEDS ORDERED: METOPROLOL TART25 MG PO (12:27)
[2016-08-26] MEDS ORDERED: LEVOFLOXACIN500 MG PO (12:28)
--- NOTE | 2016-08-26 12:29 | Provider's Discharge Care Plan ---
Problem, Goal, Plan Problem List 1. Bacteremia Instructions: In the hospital you were treated for strept pneumoniae, you have recieved IV antibiotics and switch to oral on discharge, you need to complete 14 days of antibiotic treatment 2. Hypertension Instructions: Follow up as directed, You are note dto have hypertension and started on metoprolol 3. Abnormal liver function Instructions: On admission your liver function was abnormal which is getting slowly better, you krista follow up on that
--- NOTE | 2016-08-26 13:24 | NUR ---
1300- VSS. pt reports she is feeling better. sats good on RA. discharge education completed. given written and verbal instructions. reviewed meds and next dose due. pt left to home with
--- NOTE | 2016-08-29 15:50 | DISCHARGE SUMMARY ---
ADMIT DATE: 08/22/2016 DISCHARGE DATE: 08/26/2016 ADMITTING DIAGNOSIS: 1. Left lower lung infiltrate with pleurodynia DISCHARGE DIAGNOSES: 1. Left lower lung infiltrate with pleurodynia 2. Bacteriemia with Streptococcus pneumonia BRIEF HISTORY: A 56-year-old lady who developed a viral-type illness on 2015. She was presented to [facility] emergency department with the complaint of cough over the last several days. On the day of admission, her cough had worsened significantly and became associated with quite severe left lower chest pain. Evaluation in the emergency department showed an elevated D-dimer, and the patient ended up having a CT angiogram that showed a dense infiltrate in the left lower lung, and there was no evidence of pulmonary emboli. For the above reason, she was admitted to the hospital. HOSPITAL COURSE: The patient was admitted with left lower lobe pneumonia with pleurodynia. She is very started on antibiotics, ceftriaxone and Zithromax. Her blood culture grew Streptococcus pneumoniae which was sensitive to most of the antibiotics. Her pain was controlled with Vicodin. In view of her abnormal liver function, the Vicodin was discontinued, and she was given oxycodone for pain relief. She eventually improved and was discharged on levofloxacin to complete the course of antibiotics for 14 days. PHYSICAL EXAMINATION: VITAL SIGNS: Her vitals at the time of discharge were blood pressure 158/91, pulse rate 91, temperature 98.7, respiratory rate 19. GENERAL APPEARANCE: She was alert, awake, oriented x3. HEENT: Head: Atraumatic, normocephalic. Neck supple. Eyes: Pupils equally reactive to light. CHEST: Left lower lung arreaga, rhonchi present, otherwise clear lung arreaga. HEART: S1 and S2 normal. No murmur. ABDOMEN: Soft, nontender, nondistended. Bowel sounds present. EXTREMITIES: No edema. LAB/IMAGING: Labs at the time of discharge were WBC 11.3, hemoglobin 11.6, hematocrit 36.6, neutrophils 76.5, platelet 448. Sodium 139, potassium 4.1, chloride 104, bicarbonate 30, BUN 7, and creatinine 0.7. GFR more than 60. Glucose 107, calcium 8.7. Liver function: Total bilirubin 0.3, direct bilirubin 0.1, AST 34, ALT 185, alkaline phosphatase 134. Total protein 6.8, albumin 2.4, procalcitonin 0.6. Hepatitis panel pending. Chest and thorax with contrast: Mild to moderate bibasilar atelectasis and consolidation with air in the distal esophagus. No evidence of pulmonary embolism. Fatty infiltration of the liver. Abdominal ultrasound: Fatty infiltration of the liver, otherwise negative ultrasound of the gallbladder and right upper quadrant. DISCHARGE INSTRUCTIONS/MEDICATIONS: You were admitted with pneumonia and also found to have bacteriemia. For that, you received IV antibiotics, and now you are being discharged on oral levofloxacin to complete the course of antibiotics over the next 14 days. Your liver function was abnormal. Ultrasound of abdomen showed fatty liver disease. For that, we have sent a hepatitis panel, result sare pending.
== END 2016-08-26 13:28 | disposition home or self-care (01) | DRG 194 ==
LOC: ED SRH 20:21 → TRANS SRH 08-22 02:15 → ACUTE2 SRH 08-22 04:05
PROVIDERS: ADMIT Family Medicine
PROC: 3E0234Z Introduction of Serum, Toxoid and Vaccine into Muscle, Percutaneous Approach (ICD-10-PCS; principal; 2016-08-23)
DX: J18.9 Pneumonia, unspecified organism (principal); R07.81 Pleurodynia; R78.81 Bacteremia; B95.3 Streptococcus pneumoniae as the cause of diseases classified elsewhere; K76.0 Fatty (change of) liver, not elsewhere classified; Z23 Encounter for immunization
CPT/HCPCS: 29230; 29257; 29259; 90047; 90065; 90074; 90075; 90078; 90100; 90616; 91556; 91588; 92235; 92530; 92610; 92710; 92720; 92780; 93002; 93004; 95059; 97000